=== PATIENT | male | born 1970 | race Two or more races ===

== ENCOUNTER 2024-12-01 11:49 | Inpatient (IN) | payer BC, OTHER, SELFPAY ==
[2024-12-01] VITALS (68 sets, daily range): BP systolic 104–164; BP diastolic 53–74; PULSE 22–44; RESP 2–96; TEMP 36.9–37.2; O2SAT 84–99; BMI 30.5
--- NOTE | 2024-12-01 12:08 | XR_ITS ---
Examination: CT abdomen and pelvis without contrast. Coronal 3-D reconstructions. Sagittal 2-D reconstructions. Date and time of exam:December 01, 2024 1257 hours COMPARISON: February 01, 2020 INDICATIONS: Left lower abdomen pain and diarrhea beginning 2 weeks ago CTDI: vol (mGy): 10.2 DLP: (mGycm): 645 Technique: Axial images of the abdomen have been obtained, 3 mm slice thickness Intravenous contrast material has not been administered. Low dose protocols were performed. One or more of the following dose reduction techniques were used; automated exposure control, adjustment of the mA and/or KV according to patient size, use of iterative reconstruction technique. Findings: Atelectasis in the right lower lobe Mild right pleural fluid Mild fluid subcapsular to the liver, most prominent anterior to liver 14 mm Gallbladder wall appears thickened, tiny gallstones Spleen is not enlarged No pancreatic mass No renal or ureteral calculi, no hydronephrosis Normal appendix Mild free fluid in the abdomen Urinary bladder intact Prominent osteopenia IMPRESSION: Atelectasis right lower lobe Mild right pleural fluid Mild fluid subcapsular to the liver, clinical correlation advised Gallbladder wall appears thickened, recommend hepatobiliary sonography follow-up Mild free fluid in the abdomen, clinical correlation advised
--- NOTE | 2024-12-01 12:08 | EKG_ITS ---
[facility] Test Date: 2024-12-01 Pat Name: MERVAT KAPOOR Department: Room: - Gender: Male Account Liaison: : 1970 Requested By: Gerardo Carrera Order Number: [id number] Reading MD: Gerardo Carrera Measurements Intervals [place] Rate: 34 P: AL: QRS: -12 QRSD: 132 T: -18 QT: 489 QTc: 370 Interpretive Statements IDIOVENTRICULAR RHYTHM CRITICAL TEST RESULT Compared to ECG 12/20/2020 12:31:06 Idioventricular rhythm now present Sinus rhythm no longer present Left bundle-branch block no longer present /store/S0/[id number].pdf
--- NOTE | 2024-12-01 12:09 | PD.EDABDPN ---
ED Abdominal Pain RME/HPI General Chief Complaint: Abdominal Pain Stated complaint: ABD PAIN, DIARRHEA X 2 WKS Time seen by provider: 12/01/24 12:03 Arrival date/time: 12/01/24 11:49 54-year-old male with no known medical history presents to the emergency room with a chief complaint of left lower quadrant abdominal pain and diarrhea x 2 weeks. Patient was seen by his primary care provider this morning and was sent to the emergency room due to bradycardia. Source: patient Mode of arrival: ambulatory Limitations: no limitations Related Data Home Medications ?Medication ?Instructions ?Recorded ?Confirmed amlodipine 10 mg tablet 10 mg PO QDAY 12/20/20 02/03/24 atorvastatin 10 mg tablet 10 mg PO QPM 12/20/20 02/03/24 garlic 5,000 mcg tablet 5 mg PO QDAY 11/14/22 02/03/24 hydrochlorothiazide 12.5 mg tablet 12.5 mg PO QAM 11/14/22 02/03/24 lisinopril 20 mg tablet 20 mg PO QDAY 11/14/22 02/03/24 metformin 500 mg tablet 500 mg PO QDAY 11/14/22 02/03/24 omeprazole 20 mg capsule,delayed 20 mg PO QDAY 11/14/22 02/03/24 release vit A palm and D3 in cod liver oil 1 cap PO QDAY 11/14/22 02/03/24 1,250 unit-130 unit-530 mg capsule (Cod Liver Oil plus Vits A and D3) allopurinol 100 mg tablet 100 mg PO QDAY 02/03/24 02/03/24 Previous Rx's ?Medication ?Instructions ?Recorded tamsulosin 0.4 mg capsule 0.4 mg PO QDAY #30 caps 01/30/20 docusate sodium 100 mg capsule 100 mg PO BID #40 caps 09/06/20 (Colace) Allergies Allergy/AdvReac Type Severity Reaction Status Date / Time acai Allergy Swelling Verified 12/01/24 11:54 of Lip/Tongue/Throat polyester fibers Allergy Rash Verified 12/01/24 11:54 kiwi AdvReac Swelling Verified 12/01/24 11:54 of Lip/Tongue/Throat turkey AdvReac Swelling Verified 12/01/24 11:54 of Lip/Tongue/Throat Review of Systems Review of Systems Systems Reviewed: All systems reviewed, normal except as documented Constitutional Constitutional: Reports system reviewed and no additional complaints, except as documented, Denies fatigue, Denies fever(s), Denies headache(s) and Denies weakness Eyes Eyes: Reports system reviewed and no additional complaints, except as documented, Denies blurry vision and Denies change in vision ENT Ears, Nose, Mouth, and Throat: Reports system reviewed and no additional complaints, except as documented, Denies otalgia, Denies headache(s), Denies nasal congestion, Denies throat swelling and Denies vertigo Cardiovascular Cardiovascular: Reports system reviewed and no additional complaints, except as documented, Denies chest pain, Denies dyspnea and Denies dyspnea on exertion Respiratory Respiratory: Reports system reviewed and no additional complaints, except as documented, Denies chest congestion, Denies cough, Denies dyspnea, Denies dyspnea on exertion and Denies wheezing Gastrointestinal Gastrointestinal: Reports system reviewed and no additional complaints, except as documented, Reports abdominal pain, Denies cramping, Reports loose stools, Denies nausea and Denies vomiting Genitourinary Genitourinary: Reports system reviewed and no additional complaints, except as documented, Denies dysuria and Denies hematuria Musculoskeletal Musculoskeletal: Reports system reviewed and no additional complaints, except as documented and Denies back pain Integumentary/Breasts Skin/Breast: Reports system reviewed and no additional complaints, except as documented and Denies wounds Neurologic Neurologic: Reports system reviewed and no additional complaints, except as documented, Denies confusion, Denies headache(s), Denies lack of coordination, Denies vertigo and Denies weakness Psychiatric Psychiatric: Reports system reviewed and no additional complaints, except as documented, Denies anxiety, Denies confusion, Denies depression, Denies paranoia, Denies suicidal ideation and Denies tactile hallucinations Endocrine Endocrine: Reports system reviewed and no additional complaints, except as documented and Denies fatigue Hematologic/Lymphatic Hematologic/Lymphatic: Reports system reviewed and no additional complaints, except as documented and Denies lymphadenopathy Allergic/Immunologic Allergic/Immunologic: Reports system reviewed and no additional complaints, except as documented, Denies throat swelling, Denies urticaria and Denies wheezing ED Exam General Limitations: Present no limitations General appearance: Present alert and in no apparent distress Head Head exam: Present atraumatic Eye Eye exam: Present normal appearance, PERRL and EOMI ENT ENT exam: Present normal exam, normal oropharynx and mucous membranes moist Neck Neck exam: Present normal inspection, full ROM and trachea midline Chest Chest inspection: Present normal inspection and symmetric chest wall rise Respiratory Respiratory exam: Present normal lung sounds bilaterally; Absent respiratory distress, wheezes, stridor, accessory muscle use or prolonged expiratory phase Cardiovascular Cardiovascular exam: Present regular rate, normal rhythm, bradycardia, irregular rhythm, normal heart sounds, +S1 and +S2; Absent tachycardia, systolic murmur, diastolic murmur, rubs, gallop, clicks, JVD, +S3 or +S4 Abdominal Exam Abdominal exam: Present soft, tenderness, normal bowel sounds and pulsatile mass Abdominal tenderness: Present LLQ and mild Extremities Exam Extremities exam: Present normal inspection and full ROM Back Exam Back exam: Present normal inspection and full ROM Neurological Exam Neurological exam: Present alert, oriented X3 and CN II-XII intact Psychiatric Psychiatric exam: Present normal affect and normal mood Skin Skin exam: Present warm, dry, intact and normal color Course Quality Measures none Orders Category Date Time Status COVID-19 Screening Questionnaire NOW Care 12/01/24 14:16 Active Decision to Admit X1 Care 12/01/24 14:15 Active EKG (ED ONLY) *Do not use* NOW Care 12/01/24 12:08 Completed Consult to Cardiology Stat Cons 12/01/24 14:19 Ordered CA echo doppler complete Stat Exams 12/01/24 14:[address] abdomen pelvis wo con Stat Exams 12/01/24 12:08 Completed EKG (ED Only) Stat Exams 12/01/24 12:08 Draft B-Type Natriuretic Peptide Stat Lab 12/01/24 13:20 Completed CBC Stat Lab 12/01/24 13:20 Completed CMP [Comprehensive Metabolic Panel] Stat Lab 12/01/24 13:20 Completed Free T4 (Free Thyroxine) Stat Lab 12/01/24 13:20 Completed Lipase Stat Lab 12/01/24 13:20 Completed Magnesium Stat Lab 12/01/24 13:20 Completed Partial Thromboplastin Time Stat Lab 12/01/24 13:20 Completed Phosphorous Stat Lab 12/01/24 13:20 Completed Prothrombin Time with INR Stat Lab 12/01/24 13:20 Completed TSH [Thyroid Stimulating Hormone] Stat Lab 12/01/24 13:20 Completed Troponin I Stat Lab 12/01/24 13:20 Completed Type and Screen Stat Lab 12/01/24 13:20 Results UA [Urinalysis] Stat Lab 12/01/24 12:08 Ordered Urine Culture Stat Lab 12/01/24 12:08 Ordered Atropine Inj SYR Med 12/01/24 12:44 Discontinued 1 mg IV X1 ONE Sodium Chloride 0.9% 1000 ml [Ns] 1,000 ml Med 12/01/24 14:10 Active IV 999 mls/hr Sodium Chloride 0.9% 1000 ml [Ns] 1,000 ml Med 12/01/24 14:10 Discontinued IV 999 mls/hr Vital Signs Vital signs: Vital Signs Temperature 98.9 F 12/01/24 12:01 Pulse Rate 44 L 12/01/24 12:01 Respiratory Rate 18 12/01/24 12:01 Blood Pressure 152/62 H 12/01/24 12:01 Pulse Oximetry (%) 97 12/01/24 12:01 Oxygen Delivery Method Room Air 12/01/24 12:01 O2 saturation 97% within normal limits PROCEDURES: EKG Interpretation #1: Date of EK12/01/24 Rate: 33 Interpretation: Reviewed by me EKG Impression: Sinus arrhythmia Additional EKG comment: The EKG shows sinus bradycardia at 33 bpm. There is a 3rd degree block. The assistant auditor Dr. Nam was consulted Abdominal Pain MDM MDM Narrative MDM Narrative:: 54-year-old male with no known medical history presents to the emergency room with a chief complaint of left lower quadrant abdominal pain and diarrhea x 2 weeks. Patient was seen by his primary care provider this morning and was sent to the emergency room due to bradycardia. Patient is bradycardic at 33 bpm. He is asymptomatic and denies any chest pain palpitations weakness fatigue shakiness clamminess or any other complaints. EKG was completed and shows sinus bradycardia at 33 bpm. There is 3rd degree block. The assistant auditor Dr. Nam was consulted. CBC CMP were completed and the patient's sodium levels were low and the patient was in acute kidney injury. Dr. Nam was updated with a CBC and CMP results and his recommendations were to do a stat echocardiogram. The patient was then admitted to the hospitalist group Dr. Boo who will admit the patient. Patient data External records reviewed:: [facility] previous records Clinical information provided by:: patient Social determinants that could affect healthcare access:: none Patient has the following chronic illnesses:: Type 2 diabetes, hypertension How is presenting disease/condition affected by chronic disease/condition?: no chronic disease Evaluation data The following diagnostics were reviewed and interpreted by me:: lab results and radiology exam(s) Lab and/or radiology exams considered but not ordered:: Labs and radiology exams considered and ordered Interpretation Summary: CT abdomen and pelvis-Findings: Atelectasis in the right lower lobe Mild right pleural fluid Mild fluid subcapsular to the liver, most prominent anterior to liver 14 mm Gallbladder wall appears thickened, tiny gallstones Spleen is not enlarged No pancreatic mass No renal or ureteral calculi, no hydronephrosis Normal appendix Mild free fluid in the abdomen Urinary bladder intact Prominent osteopenia IMPRESSION: Atelectasis right lower lobe Mild right pleural fluid Mild fluid subcapsular to the liver, clinical correlation advised Gallbladder wall appears thickened, recommend hepatobiliary sonography follow-up Mild free fluid in the abdomen, clinical correlation advised Medications / Prescriptions Medications or Prescriptions considered but not ordered:: No medication given Medication administrations:: Medication Administration History Sodium Chloride (Ns) 1,000 mls @ 999 mls/hr IV .Q1H1M ONE Stop: 12/01/24 15:10 Last Admin: 12/01/24 14:16 Dose: 999 mls/hr Documented By: STEPHEN Discontinued Medications Atropine Sulfate (Atropine Sulf Inj 0.1 Mg/Ml Syr 10 Ml) 1 mg IV X1 ONE Stop: 12/01/24 12:45 Last Admin: 12/01/24 13:28 Dose: 1 mg Documented By: STEPHEN Sodium Chloride (Ns) 1,000 mls @ 999 mls/hr IV .Q1H1M ONE Stop: 12/01/24 15:10 Last Admin: 12/01/24 14:16 Dose: Not Given Documented By: STEPHEN Non-Admin Reason: Duplicate Medication on eMAR No medication given Consultations Consultation(s) initiated? (list below): Yes Consultation #1 (Physician, Specialty, Details): Dr Nam Time: 14:00 Diagnosis Differential diagnosis abdominal pain: abdominal pain, diverticulitis and other (Sinus bradycardia/acute kidney injury) Most likely diagnosis given after review of the tests above:: Sinus bradycardia/acute kidney injury Admission Indicated Admission indicated?: indicated Admission Request Was there a request for admission?: Yes Admission Attestation Admission request attestation: Discussed case with [] from Hospitalist service regarding admission. Discussed patients ED course, exam findings, labs, and radiology results. The Hospitalist [agrees,declines] to accept the patient for admission. Disposition Plan Disposition Plan: Admit Discharge Plan Plan Patient Disposition: Admit Acute Care w/in Hospital Discharge Disposition comment: Stable Prescriptions/Referrals Prescriptions/Med Rec: No Action lisinopril 20 mg tablet 20 mg PO QDAY omeprazole 20 mg capsule,delayed release(DR/EC) 20 mg PO QDAY metformin 500 mg tablet 500 mg PO QDAY hydrochlorothiazide 12.5 mg tablet 12.5 mg PO QAM garlic 5,000 mcg tablet 5 mg PO QDAY Cod Liver Oil plus Immanuel and D3 1,250 unit-130 unit-530 mg capsule 1 cap PO QDAY allopurinol 100 mg tablet 100 mg PO QDAY tamsulosin 0.4 mg Capsule 0.4 mg PO QDAY Qty: 30 0RF docusate sodium [Colace] 100 mg capsule 100 mg PO BID Qty: 40 0RF atorvastatin 10 mg Tablet 10 mg PO QPM amlodipine 10 mg Tablet 10 mg PO QDAY Referrals: Sherry Parra MD [Primary Care Provider] - In 1 week Problem List Clinical Impression: Bradycardia, Acute kidney injury Patient/Caregiver Discharge Instructions Print Language: Syrian Stand Alone Forms: Sade Award Info., Patient Portal Info Letter PA/CONSULTING SOLUTION MANAGER Supervising Physician PA/CONSULTING SOLUTION MANAGER Supervising Physician: Dr. Servando FAN Attestation MD Attestation The patient was seen by the midlevel practitioner. I, the co-signing physician, was present during the entire ER visit. While I did not physically examine the patient, I was available for consultation as needed. I agree with the plan and documentation.
[2024-12-01] MEDS: ATROPINE SULF INJ 0.1 MG/ML SYR 10 ML 1 MG IV (13:28)
[2024-12-01 13:36] LABS: Basophils # (Auto) 0.0 Thou/mm3 (0.0-0.2); Basophils % (Auto) 0 % (0-2.5); Eosinophils # (Auto) 0.1 Thou/mm3 (0.0-0.5); Eosinophils % (Auto) 1 % (0-10); Hematocrit 34.6 % (41.0-53.0); Hemoglobin 11.7 g/dL (13.5-16.0); Immature Granulocytes Auto 0.07 Thou/mm3 (0.00-0.00); Lymphocytes # (Auto) 1.2 Thou/mm3 (1.0-4.8); Lymphocytes % (Auto) 9 % (10-50); Mean Corpuscular HGB Conc 33.8 g/dl (31.0-37.0); Mean Corpuscular Hemoglobin 30.9 pg (25.0-35.0); Mean Corpuscular Volume 91 fL (80-100); Monocytes # (Auto) 0.8 Thou/mm3 (0.0-0.8); Monocytes % (Auto) 7 % (0-12); Neutrophils # (Auto) 10.8 Thou/mm3 (1.8-7.7); Neutrophils % (Auto) 83 % (37-80); Nucleated Red Blood Cell # 0.00 Thou/mm3 (0.00-0.00); Nucleated Red Blood Cell % 0 /100 WBC (0); Platelet Count 272 Thou/mm3 (140-440); RDW Standard Deviation 46.1 fL (35.1-43.9); Red Blood Count 3.79 Miln/mm3 (4.50-5.90); White Blood Count 13.0 Thou/mm3 (3.8-10.6)
--- NOTE | 2024-12-01 13:39 | PC.NURSE ---
Patient has asymptomatic bradycardia with herat rate 33. Patient given 1mg Atropine with no improvement on heart rate. Patient placed on Zoll monitor pads.
[2024-12-01 13:46] LABS: INR 1.0 (0.9-1.3); Partial Thromboplastin Time 27.2 Seconds (22.0-36.0); Prothrombin Time 11.1 Seconds (9.0-12.2)
[2024-12-01 13:48] LABS: B-Type Natriuretic Peptide 619 pg/mL (0-100)
[2024-12-01 13:50] LABS: Alanine Aminotransferase 44 U/L (10-49); Albumin, Serum 4.6 gm/dL (3.5-5.0); Albumin/Globulin Ratio 2.0 (1.2-2.2); Alkaline Phosphatase 89 U/L (46-116); Anion Gap 11 (7-16); Aspartate Amino Transferase 11 U/L (0-34); BUN/Creatinine Ratio 21 Ratio (12-20); Bilirubin,Total 0.7 mg/dL (0.3-1.2); Blood Urea Nitrogen 33 mg/dL (9-23); Calcium 9.5 mg/dL (8.3-10.6); Calcium (Corrected) 9.5 mg/dL (8.5-10.1); Carbon Dioxide 21.7 mMol/L (20.0-31.0); Chloride 96 mMol/L (98-107); Creatinine (Component) 1.6 mg/dL (0.6-1.3); Estimated Creatinine Clearance 60.7 mL/min (>60); Globulin 2.3 gm/dL (2.3-3.5); Glucose 169 mg/dL (74-106); Lipase 103 U/L (12-53); Osmolality,Calculated 270 (275-295); Potassium 5.0 mMol/L (3.4-5.1); Sodium 129 mMol/L (136-145); Total Protein 6.9 gm/dL (5.7-8.2); Troponin I < 0.020 ng/mL (0.0-0.045); eGFR 50 See Note
[2024-12-01 13:53] LABS: Free T4 (Free Thyroxine) 1.57 ng/dL (0.89-1.76); Magnesium 1.8 mg/dL (1.6-2.6); Phosphorous 4.0 mg/dL (2.4-5.1); Thyroid Stimulating Hormone 1.78 uIU/mL (0.55-4.78)
[2024-12-01] MEDS: SODIUM CHLORIDE 0.9% 1000 ML 1,000 ML 999 ML IV (14:16)
--- NOTE | 2024-12-01 14:19 | ECHO_ITS ---
Transthoracic Echo Report Ht (in): 70 Wt (lb): 217 Exam Location: Echo Lab Status: Inpatient Assurance Sourcing Manager: Ella Broderick Indications: Procedure Performed: BP: / HR: MEASUREMENTS (Male / Female) Normal Values 2D ECHO LV Diastolic Diameter PLAX 5.3 cm 4.2 - 5.9 / 3.9 - 5.3 cm LV Systolic Diameter PLAX 3.4 cm IVS Diastolic Thickness 0.9 cm 0.6 - 1.0 / 0.6 - 0.9 cm LVPW Diastolic Thickness 1.0 cm 0.6 - 1.0 / 0.6 - 0.9 cm LV Relative Wall Thickness 0.4 LVOT Diameter 1.7 cm Aortic Root Diameter 3.1 cm LA Systolic Diameter LX 3.7 cm 3.0 - 4.0 / 2.7 - 3.8 cm LV Ejection Fraction MOD BP 41.4 % >= 55 % LV Ejection Fraction MOD 4C 35.1 % LV Ejection Fraction 4C AL 34.5 % LV Ejection Fraction MOD 2C 45.3 % LV Ejection Fraction 2C AL 46.4 % LA Volume Index 24.9 cm?/m? 16 - 28 cm?/m? M-MODE Aortic Root Diameter MM 2.6 cm LA Systolic Diameter MM 3.8 cm LA Ao Ratio MM 1.5 AV Cusp Separation MM 1.9 cm DOPPLER AV Peak Velocity 291.0 cm/s AV Peak Gradient 33.9 mmHg AV Mean Gradient 19.0 mmHg AV Velocity Time Integral 68.5 cm LVOT Peak Velocity 193.0 cm/s LVOT Peak Gradient 14.9 mmHg LVOT Velocity Time Integral 40.5 cm AV Area Cont Eq vti 1.3 cm? AV Area Cont Eq pk 1.5 cm? MV Area PHT 5.8 cm? MR Peak Velocity 419.5 cm/s MR Peak Gradient 70.4 mmHg Mitral E Point Velocity 105.0 cm/s Mitral A Point Velocity 102.0 cm/s Mitral E to A Ratio 1.0 LV E' Lateral Velocity 10.7 cm/s Mitral E to LV E' Lateral Ratio 9.8 LV E' Septal Velocity 8.2 cm/s Mitral E to LV E' Septal Ratio 12.9 TR Peak Velocity 286.3 cm/s TR Peak Gradient 32.8 mmHg PV Peak Velocity 171.0 cm/s PV Peak Gradient 11.7 mmHg FINDINGS Left Ventricle Normal left ventricular size, wall thickness, systolic function with no obvious regional wall motion abnormalities.Indeterminate diastolic due to A-fib. The ejection fraction is visually estimated at 50-55%. Right Ventricle The right ventricle is normal in size and systolic function. The estimated right ventricular systolic pressure, 48 mmHg. Left Atrium The left atrium is normal by two-dimensional, color flow and Doppler imaging with no structural abnormalities, no thrombus formation present. Right Atrium The right atrium is normal by two-dimensional imaging, color flow and Doppler imaging with no structural abnormalities, no thrombus formation present. Atrial Septum The interatrial septum appears normal with no evidence of a shunt. Aorta The aorta is normal by two-dimensional, color flow and Doppler interrogation. Mitral Valve The mitral valve is normal by two-dimensional, color flow and Doppler interrogation. Mild mitral regurgitation. Aortic Valve Mild thickening of the aortic valve leaflets. There is no significant aortic valve regurgitation. Tricuspid Valve The tricuspid valve is normal by two-dimensional, color flow and Doppler interrogation. There is mild tricuspid valve regurgitation. Pulmonic Valve The pulmonic valve is not well visualized. There is no significant pulmonic valve regurgitation. Vessels The pulmonary artery appears normal. The inferior vena cava not well visualized Pericardium The pericardium is normal by two-dimensional imaging. There is no significant pericardial effusion. CONCLUSIONS Indication: Bradycardia Normal LV size and wall thickness. LV function appears to be hyperkinetic with an EF of around 65 to 70%. Diastolic function cannot be graded because of the arrhythmia with complete heart block. Normal RV size and function. RVSP could not be estimated accurately. Mild MR and TR. Aortic valve not well-visualized and cannot comment on tricuspid vs bicuspid. Moderate aortic valve sclerosis without stenosis. IVC not well-visualized. No clear evidence of any pericardial effusion Elevated LVOT velocities mostly secondary to the hyperkinetic contraction of LV in the setting of severe bradycardia Rodney Nam (Electronically Signed) Final Date: 02 December 2024 01:07
--- NOTE | 2024-12-01 15:25 | PD.RESCONSUL ---
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 Patient denied dizziness or syncopal episodes, but did endorse feeling of generalized weakness when he tries to stand and walk. The patient reported that he thinks he got food poisoning for the past 2 weeks, reported abdominal pain and diarrhea for the past couple of weeks. Denied nausea or vomiting. Of note, patient's home medication record shows metoprolol succinate, the patient is not aware of his home medications, but did report taking all his medications this morning. The patient also reported that he saw a delivery recruiter 4 years ago for cardiac clearance prior to his surgery for inguinal hernia and left testicular tumor, at that time he had a stress test and was told everything was normal. Initial vitals, BP 148/58, pulse 33/min, respiratory rate 14/min, O2 sat 95 percent on room air, EKG showed third-degree AV block, initial labs showed hyponatremia and acute kidney injury. CT abdomen pelvis showed atelectasis right lower lobe, mild right pleural fluid, mild fluid subcapsular to the liver, thickened gallbladder wall, mild free fluid in abdomen, Patient was given 1 L NS bolus, blood pressure continues to be stable, initial labs showed WBC 13, hemoglobin 11.7 platelet 272, hyponatremia sodium 129, potassium 5.0, BUN 33 creatinine 1.6, glucose 169, osmolality 270, BNP 619, lipase 103. Home medications: Metoprolol succinate 25 mg daily, tamsulosin 0.4 mg daily, amlodipine 10 mg daily, atorvastatin 10 mg daily, allopurinol 100 mg daily, metformin 500 mg, lisinopril 20 mg, hydrochlorothiazide 12.5 mg. 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 RESOLVED. CLEAR BY CONFERENCE COORDINATOR), Hypercholesterolemia and Hypertension; Negative Congestive Heart Failure, Edema, Cellulitis or Varicose Veins RESPIRATORY: Negative Chronic Obstructive Pulmonary Disease (COPD), Asthma, Tuberculosis or Sleep Apnea GASTROINTESTINAL: Positive Gastrointestinal Disorders and Gastroesophageal Reflux Disease; Negative Hepatitis GENITOURINARY: Positive Inguinal Hernia (repairedin August 2020) and Benign Prostatic Hyperplasia; Negative Genitourinary Disorders or Renal Disease MUSCULOSKELETAL: Positive Musculoskeletal Disorders, Arthritis, Gout, Degenerative Joint Disease (PINCHED NERVE) and Osteomyelitis ENT: Positive Head Trauma (AT AGE 5) ENDOCRINE: Positive Endocrine Disorders and Diabetes Mellitus Type 2 (NO MEDS); Negative Diabetes Mellitus Type 1 HEMATOLOGIC: Negative Blood Disorders, Sickle Cell Disease or Clotting Problems OTHER HISTORY: Positive Hospitalization and Chicken Pox; Negative Autoimmune Disease, Shingles, Falls, Blood Transfusions, Blood Transfusion Reaction, Anesthesia Reactions, Organ Transplant, Chemotherapy, Radiation Therapy, MRSA, Measles, Mumps or Cancer Family History FAMILY HISTORY: Positive Family Respiratory Disorders (MOTHER- ASTHMA), Family Cardiac Disorders (BROTHER - HEART SURGERY) and Family Surgery; Negative Family Neurologic Problems, Family Psychiatric Problems, Family Gastrointestinal Problems, Family Cancer or Family Anesthesia Reaction Surgical History SURGICAL: Positive Abdominal Surgery; Negative Cardiac Surgery, Pacemaker, Endocrine Surgery, Ear Surgery, Eye Surgery, Nose Surgery, Oral Surgery, Neurologic Surgery, Vasectomy or Organ Transplant Social History SMOKING STATUS: Never smoker SECOND HAND EXPOSURE: No SUBSTANCE USE: does not use Exam Vital Signs Temp Pulse Resp BP Pulse Ox O2 Del Method 98.9 F 33 L 14 148/58 H 93 L Room Air 12/01/24 13:33 12/01/24 13:33 12/01/24 13:33 12/01/24 13:33 12/01/24 13:33 12/01/24 13:33 Narrative Exam General: AOx3, cooperative Skin: Intact, no cyanosis , trace pedal edema noted. Noted multiple keloids on the anterior chest. HEENT: Atraumatic/normocephalic, [place], neck supple Heart: RRR, S1 and S2 without clicks or murmurs Lungs: Clear on auscultation bilaterally, no difficulty breathing Abdomen: Soft, nontender. Bowel sounds present . Vascular: Peripheral pulses palpable Neuro: No focal neurological deficits noted. Results Labs 12/01/24 13:20 12/01/24 13:20 Labs: Short CBC 12/01/24 Range/Units 13:20 WBC 13.0 H (3.8-10.6) Thou/mm3 Hgb 11.7 L (13.5-16.0) g/dL Hct 34.6 L (41.0-53.0) % Plt Count 272 (140-440) Thou/mm3 BMP 12/01/24 13:20 Sodium 129 L Potassium 5.0 Chloride 96 L Carbon Dioxide 21.7 BUN 33 H Creatinine 1.6 H Glucose 169 H Calcium 9.5 Cardiac Enzymes 12/01/24 Range/Units 13:20 Troponin I < 0.020 (0.0-0.045) ng/mL Liver Function 12/01/24 Range/Units 13:20 Total Bilirubin 0.7 (0.3-1.2) mg/dL AST 11 (0-34) U/L ALT 44 (10-49) U/L Alkaline Phosphatase 89 (46-116) U/L Albumin 4.6 (3.5-5.0) gm/dL Quality Measures Quality Measures none Medications Home Medications and Allergies Home Medications ?Medication ?Instructions ?Recorded ?Confirmed ?Type amlodipine 10 mg tablet 10 mg PO QDAY 12/20/20 12/01/24 History atorvastatin 10 mg tablet 10 mg PO QPM 12/20/20 12/01/24 History garlic 5,000 mcg tablet 5 mg PO QDAY 11/14/22 12/01/24 History hydrochlorothiazide 12.5 mg tablet 12.5 mg PO QAM 11/14/22 12/01/24 History lisinopril 20 mg tablet 20 mg PO QDAY 11/14/22 12/01/24 History metformin 500 mg tablet 500 mg PO QDAY 11/14/22 12/01/24 History omeprazole 20 mg capsule,delayed 20 mg PO QDAY 11/14/22 12/01/24 History release vit A palm and D3 in cod liver oil 1 cap PO QDAY 11/14/22 12/01/24 History 1,250 unit-130 unit-530 mg capsule (Cod Liver Oil plus Vits A and D3) allopurinol 100 mg tablet 100 mg PO QDAY 02/03/24 12/01/24 History Allergies Allergy/AdvReac Type Severity Reaction Status Date / Time acai Allergy Swelling Verified 12/01/24 11:54 of Lip/Tongue/Throat polyester fibers Allergy Rash Verified 12/01/24 11:54 kiwi AdvReac Swelling Verified 12/01/24 11:54 of Lip/Tongue/Throat turkey AdvReac Swelling Verified 12/01/24 11:54 of Lip/Tongue/Throat Visit Medications Discontinued Medications Atropine Sulfate (Atropine Sulf Inj 0.1 Mg/Ml Syr 10 Ml) 1 mg IV X1 ONE Stop: 12/01/24 12:45 Last Admin: 12/01/24 13:28 Dose: 1 mg Sodium Chloride (Ns) 1,000 mls @ 999 mls/hr IV .Q1H1M ONE Stop: 12/01/24 15:10 Last Admin: 12/01/24 14:16 Dose: 999 mls/hr Sodium Chloride (Ns) 1,000 mls @ 999 mls/hr IV .Q1H1M ONE Stop: 12/01/24 15:10 Last Admin: 12/01/24 14:16 Dose: Not Given Assessment & Plan Plan The patient is a 54-year-old male with a prior history of hypertension, hyperlipidemia, gout, diabetes mellitus type 2, history of BPH, history of inguinal hernia, 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 Patient denied dizziness or syncopal episodes, but did endorse feeling of generalized weakness when he tries to stand and walk. The patient reported that he thinks he got food poisoning for the past 2 weeks, reported abdominal pain and diarrhea for the past couple of weeks. Denied nausea or vomiting. Of note, the patient also reported that he saw a delivery recruiter 4 years ago for cardiac clearance prior to his surgery for inguinal hernia and left testicular tumor, at that time he had a stress test and was told everything was normal. Problems: 1. Bradycardia, third-degree AV block 2. Acute kidney injury - rule out cardiorenal vs pre renal 3. Hyponatremia 4. Mild Pleural effusion 5. History of hypertension 6. History of diabetes mellitus 7. History of left testicular tumor s/p radical orchidectomy 8. History of anemia Noted third-degree AV block on EKG, patient is asymptomatic at the moment, did complain generalized weakness but patient reports having the symptoms for the past couple of weeks since onset of diarrhea. Denied syncope or dizziness, vitals stable. Was given 1 L IV fluid bolus, 1 mg IV atropine and pacer pads were placed. At the time of evaluation patient continues to deny any symptoms of chest pain or pressure, or dizziness. Heart rate 32/min blood pressure systolic in the 140s. Recommend to give IV fluids for KELLY, recommend to keep pacing pads on at all times, keep atropine at bedside, if patient develops symptomatic bradycardia, ordered stat echocardiogram. Hypoosmolar hyponatremia likely secondary to hypovolemia, in the setting of diarrhea and prerenal KELLY. Acute kidney injury likely prerenal in the setting of diarrhea, CT did show mild free fluid in abdomen and mild right pleural effusion but patient does not seem to be clinically in decompensated heart failure, received IV fluid bolus in ED, will discontinue IV fluids as patient has pleural effusion and mild ascites. CT abdomen pelvis also reported mild right pleural effusion and mild free fluid in abdomen, slight lipase elevation, no clinical concern of pancreatitis at this point, will defer to primary team. Pleural effusion and mild ascites possibly due to decreased cardiac output in the setting of bradycardia. Did notice hypertension patient's blood pressure 173 systolic, would recommend holding off on blood pressure medications as patient is high risk for developing cardiogenic shock, if blood pressure continues to be elevated can consider hydralazine as needed. ? Per ACLS bradycardia algorithm, recommend to keep atropine at bedside, if patient develops symptomatic bradycardia, can give atropine and Consider dopamine drip if patient hypotensive, as part of ACLS bradycardia protocol. ? Ordered stat echocardiogram. ? Tentative plan for permanent pacemaker placement tomorrow, patient to be made n.p.o. after midnight. - Recommend to not give any aspirin or heparin subcu tomorrow morning. Rest of the management deferred to primary team. Thank you for cardiology consultation. We appreciate the opportunity to participate in this patient's care. Will continue to follow-up on this patient This case was discussed with delivery recruiter, Dr. Nam. Uday Orozco MD PG3 Attending Provider Attestation/Addendum I have personally seen and examined the patient separately on the above date of service and discussed the plan of care with the resident. I reviewed the resident Dr. Frye consultation progress note and agree with the resident findings and plan in the note above and have also edited the documentation to reflect my findings and plan. 54-year-old male with a past medical history of essential hypertension, type 2 diabetes mellitus, hyperlipidemia, left testicular tumor status post radical orchiectomy, BPH, gout, history of inguinal hernia repair, obesity presented to the emergency department for further evaluation of bradycardia. Patient apparently has been having dizziness and presyncopal episodes and about 2 positive sensation at home on and off for the past couple of weeks. He is started having some left lower quadrant abdominal pain along with diarrhea over the past 2 days and went to see his primary care doctor where he was found to have bradycardia and was sent to the emergency department. In the emergency department patient was found to have third-degree AV block or complete heart block and cardiology was consulted for further evaluation. Assessment and plan-: patient presented with complete A-V block for third-degree heart block confirmed on the EKG. No clear reversible causes noted at the present point of time. Patient has not been on beta-escobar or calcium channel escobar or other rate control medications. He does have mild KELLY and the potassium was only 5.0. Patient has been having symptomatic bradycardia given that he has been complaining of dizziness, overall tiredness or lethargic along with presyncopal episodes. Hemodynamically patient is stable with systolic blood pressure Than 150 mmHg and has a ventricular escape rate of 30 to 35 bpm. Patient was given atropine in the emergency department without much improvement in cardiology was consulted after that. Recommend no urgent temporary pacemaker placement as patient is hemodynamically stable at the present point of time. If patient's heart rate deteriorates and is hemodynamically unstable with low blood pressure patient can be started on low-dose dopamine drip overnight. Will keep the patient n.p.o. and will plan for permanent pacemaker as there is no clear reversible causes. TSH and free T4 are normal. Stat echocardiogram requested and will keep the patient n.p.o. past midnight and recommend no aspirin or heparin subcu tomorrow morning. Discussed risk benefits and alternatives of performing a permanent pacemaker for the patient including the risk of bleeding, infection as well as perforation with hemopericardium, possible along with keloid scar formation given his history of keloid scars. Patient understand the risks and wishes to proceed with procedure. Consent obtained for the same and will plan to do tomorrow afternoon. Blood pressure at 150-170 mmHg and recommend to keep the blood pressure on the same range. Hold all antihypertensive for now. No beta-blockers calcium channel blockers or Aricept or other rate control medications. Regarding his acute kidney injury BUN is 33 and creatinine is 1.6. Last creatinine is 1.0 in 2020 and unclear etiology of acute kidney injury. Overall examination shows that the PE BNP is increased at 691. Patient also does have mild pleural effusions and could be cardiorenal also. No IV fluids for now and will prefer diuresis but patient is not short of breath at the present point of time. Will reevaluate again in AM. Continue to monitor kidney function closely. Strict input output. Hypertension diabetes mellitus not well-controlled. Last A1c is 7.3. TSH FT4 normal. Troponin was negative recommend to check lipid profile Rodney Nam M.D. Interventional Cardiology
[2024-12-01 16:42] LABS: Collection Type, Urine Clean Catch; RBC,Urine 0 /hpf (0-3); Squamous Epithelial Cell,Urine 0 /hpf (0-5)
[2024-12-01 16:57] LABS: Bilirubin,Urine Negative (Negative); Blood,Urine Negative (Negative); Clarity,Urine Clear (Clear/Hazy); Color,Urine Lt-Yellow (Lt Yel-Yel); Glucose, Urine Negative (Negative); Ketones,Urine Negative (Negative); Leukocyte Esterase,Urine Negative (Negative); Nitrite,Urine Negative (Negative); PH,Urine 6.0 (5.0-7.0); Protein,Urine Negative (Neg - Trace); Specific Gravity,Urine 1.008 (1.001-1.035); Urobilinogen,Urine Negative mg/dL (0.0-1.0); WBC,Urine 1 /hpf (0-5)
--- NOTE | 2024-12-01 17:13 | ESHP_ITS ---
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 Patient endorsed that he was apparently normal until 5 days ago, later he ate some fast food following which he developed diarrheal illness, 1-3 episodes per day, watery not associated with any mucus and blood. Associated with left lower quadrant abdominal pain for which he is applying some topical creams and developed a bruise. Denies fever, nausea, vomitings, recent sick contacts. Took [id number] medications for the diarrhea but did not subside following which he went to the [facility] on the day of admission for some antibiotics but noted to have bradycardia on checking his vitals for which she was referred to our ED for further management. In the ED, patient was noted to have bradycardia with heart rate around 30 and patient is hemodynamically stable. EKG done in the ED showed complete A-V dissociation with third-degree AV block. Labs done at the time of admission showed mild KELLY with no electrolyte imbalances. Interlacer, Dr. Nam is consulted and he recommended that patient needs permanent pacemaker tomorrow but no need of any pacing as of now as the patient is hemodynamically stable. Patient is admitted into the ICU for monitoring in view of bradycardia. Interlacer recommended no antihypertensive as of now. Patient is noted to use metoprolol 25 mg once daily which was held as of now. Will undergo placement maker placement tomorrow. Will keep the patient on n.p.o. after the breakfast Patient plan of care was discussed with the Fabric Machine Operator, Dr. Servando Almodovar, PGY2 Documentation for date of: 12/01/24 HPI History of Present Illness History of present illness: A 54-year-old male with a history of hypertension, hyperlipidemia, gout, [id number] diabetes mellitus type 2, BPH, inguinal hernia repair, and a left radical orchidectomy sought care at a walk-in clinic for lower abdominal pain. There, he was found to have symptomatic bradycardia given that he has been complaining of dizziness, overall tiredness or lethargic along with presyncopal episodes and was sent to the emergency department. His current symptoms, which began on November 27, include left lower abdominal pain and loose stools three times a day, which he attributes to food poisoning, although no family members are ill. He denies nausea, vomiting, chest pain, or shortness of breath, but reports generalized weakness and shaking that make it difficult to walk, and dizziness only when it's hot outside. Upon arrival, an EKG confirmed a third- degree AV block with a heart rate of 33 bpm. No beta escobar or calcium channel escobar was used. 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 Four years ago, he underwent a left heart catheterization for cardiac clearance for his hernia and testicular tumor surgeries and was told his heart was normal. ED course: Initial vitals are notable for bradycardia with a pulse of 33/min and an EKG showing third-degree AV block. Atropine 1 mg IV x 1 was given. But no improvement in heart rate. His blood pressure is 148/58 and oxygen saturation is 95% on room air. Initial lab results show a leukocytosis with a WBC count of 13, a sodium level of 129, and a creatinine of 1.6. Imaging from a CT of the abdomen and pelvis shows atelectasis in the right lower lung, mild pleural fluid, a thickened gallbladder wall, and some free fluid in the abdomen. After receiving a 1L NS bolus, his blood pressure remained stable. Other lab results include a hemoglobin of 11.7, a potassium of 5.0, a BUN of 33, and a BNP of 619. Past medical history: as stated above Past surgical history: as stated above Medications: see med list Allergies: No known drug allergy Social history: Denies smoking and drinking Patient has been admitted to the ICU for very close monitoring and requiring placement of a permanent pacemaker. Review of Systems Review of Systems Narrative Review of Systems: All systems reviewed negative unless stated otherwise above. Exam Vital Signs Temp Pulse Resp BP Pulse Ox O2 Del Method 98.9 F 30 L 15 164/63 H 94 L Room Air 12/01/24 16:12/01/24 16:07 12/01/24 16:07 12/01/24 16:07 12/01/24 16:12/01/24 16:07 Narrative Exam General: AOx3, cooperative, in no acute distress HEENT: Atraumatic/normocephalic, LOUIS, neck supple. Heart: RRR, S1 and S2 without clicks or murmurs Lungs: Good bilateral air entry, no work of breathing, no added sounds Abdomen: Nondistended soft, mild tenderness in the left lower quadrant. Bowel sounds present Vascular: Peripheral pulses palpable Skin: Intact, no cyanosis , trace pedal edema noted. Noted multiple keloids on the anterior chest. Ecchymoses on left abdomen from adding cream for pain relief Neuro: No focal neurological deficits noted. GCS 15 Psych: Appropriate mood and affect Results: Labs 12/01/24 13:20 12/01/24 13:20 Labs: Short CBC 12/01/24 Range/Units 13:20 WBC 13.0 H (3.8-10.6) Thou/mm3 Hgb 11.7 L (13.5-16.0) g/dL Hct 34.6 L (41.0-53.0) % Plt Count 272 (140-440) Thou/mm3 BMP 12/01/24 13:20 Sodium 129 L Potassium 5.0 Chloride 96 L Carbon Dioxide 21.7 BUN 33 H Creatinine 1.6 H Glucose 169 H Calcium 9.5 Cardiac Enzymes 12/01/24 Range/Units 13:20 Troponin I < 0.020 (0.0-0.045) ng/mL Liver Function 12/01/24 Range/Units 13:20 Total Bilirubin 0.7 (0.3-1.2) mg/dL AST 11 (0-34) U/L ALT 44 (10-49) U/L Alkaline Phosphatase 89 (46-116) U/L Albumin 4.6 (3.5-5.0) gm/dL Urine 12/01/24 Range/Units 16:27 Urine Color Lt-Yellow (Lt Yel-Yel) Urine Clarity Clear (Clear/Hazy) Urine pH 6.0 (5.0-7.0) Ur Specific [place] 1.008 (1.001-1.035) Urine Protein Negative (Neg - Trace) Urine Glucose (UA) Negative (Negative) Quality Measures Quality Measures none Medications Home Medications and Allergies Home Medications ?Medication ?Instructions ?Recorded ?Confirmed ?Type amlodipine 10 mg tablet 10 mg PO QDAY 12/20/2012/01 History atorvastatin 10 mg tablet 10 mg PO QPM 12/20/20 History garlic 5,000 mcg tablet 5 mg PO QDAY 11/14/22 History hydrochlorothiazide 12.5 mg tablet 12.5 mg PO QAM 10/2112/01/24 History lisinopril 20 mg tablet 20 mg PO QDAY 11/14/2212/01 History metformin 500 mg tablet 500 mg PO QDAY 11/14/2211/20 History omeprazole 20 mg capsule,delayed 20 mg PO QDAY 3 12/01/24 History release vit A palm and D3 in cod liver oil 1 cap PO QDAY 11/1412/01/24 History 1,250 unit-130 unit-530 mg capsule (Cod Liver Oil plus Vits A and D3) allopurinol 100 mg tablet 100 mg PO QDAY 02/03/2411/20 History Allergies Allergy/AdvReac Type Severity Reaction Status Date / Time acai Allergy Swelling Verified 12/01/24 11:54 of Lip/Tongue/Throat polyester fibers Allergy Rash Verified 12/01/24 11:54 kiwi AdvReac Swelling Verified 12/01/24 11:54 of Lip/Tongue/Throat turkey AdvReac Swelling Verified 12/01/24 11:54 of Lip/Tongue/Throat Visit Medications Acetaminophen (Acetaminophen 325 Mg Tablet) 650 mg PO Q4HR PRN PRN Reason: PAIN SCALE 1-3 (mild Stop: 12/31/24 15:51 Acetaminophen (Acetaminophen Supp 650 Mg Supp) 650 mg OH Q4HR PRN PRN Reason: PAIN SCALE 1-3 (mild Stop: 12/31/24 15:51 Heparin Sodium (Porcine) (Heparin Sod Inj 5000 Unit/Ml Vial) 5,000 unit SC Q8HR LINDA Stop: 12/15/24 21:59 Sodium Chloride (Ns) 500 mls @ 80 mls/hr IV .Q6H15M LINDA Stop: 12/01/24 21:39 Magnesium Sulfate (Magnesium Sulfate Ivpb) 2 gm in 50 mls @ 25 mls/hr IV X1 ONE Stop: 12/01/24 17:46 Pantoprazole Sodium (Pantoprazole Inj 40 Mg Vial) 40 mg IVP QDAY LINDA Stop: 01/01/25 08:59 Discontinued Medications Atropine Sulfate (Atropine Sulf Inj 0.1 Mg/Ml Syr 10 Ml) 1 mg IV X1 ONE Stop: 12/01/24 12:45 Last Admin: 12/01/24 13:28 Dose: 1 mg Sodium Chloride (Ns) 1,000 mls @ 999 mls/hr IV .Q1H1M ONE Stop: 12/01/24 15:10 Last Infusion: 12/01/24 15:20 Dose: Infused Sodium Chloride (Ns) 1,000 mls @ 999 mls/hr IV .Q1H1M ONE Stop: 12/01/24 15:10 Last Admin: 12/01/24 14:16 Dose: Not Given Assessment & Plan Plan Summary: 54-year-old male with a history of hypertension, hyperlipidemia, gout, [id number] diabetes mellitus type 2, BPH, inguinal hernia repair, and a left radical orchidectomy sought care at a walk-in clinic for lower abdominal pain. There, he was found to have symptomatic bradycardia given that he has been complaining of dizziness, overall tiredness or lethargic along with presyncopal episodes and was sent to the emergency department for evaluation of bradycardia. [employer] INS[employer]: No acute active issues. CVS: #Bradycardia, third-degree heart block DDx: [place], CAD, cardiomyopathy, heart valve disease, beta-escobar use, CHF No clear reversible causes Troponin negative No use of BB Plan ? Transcutaneous pacing pads on at all times ?Cardiology consulted, Dr. Nam, appreciate recs ?Atropine at bedside ? May start low-dose dopamine drip overnight if HR worsens or patient becomes hemodynamically stable #Hx of essential hypertension Plan ? No active intervention at this time until bradycardia is resolved ? May consider hydralazine if blood pressure too high #Possible new diagnosis CHF Trace pitting edema bilaterally BNP 619 Chest x-ray shows vascular congestion Plan ? Stat echo ordered ? Strict I/Os PULM: No active issues. GI: #Mild Ascites CT abdo/pelvis showed mild free fluid in abdomen Possibly due to decreased cardiac output in the setting of bradycardia LFTs normal Plan - Consider paracentesis if ascites worsens RENAL: #KELLY Unclear etiology: Prerenal vs Intrarenal vs Postrenal May be cardiorenal Creatinine 1.6 Received 1.5 L so far Plan ? No fluids until reassessment in AM ? Consider diuretics if patient develops SOB ? Check labs in a.m. #Hyponatremia Likely secondary to diarrhea Received IV fluids today Plan ? Check lab in a.m. ENDO: #Type 2 diabetes, [id number] A1c 7.3 Not well controlled ? Blood glucose checks ?Insulin sliding scale ? Hypoglycemia protocol in place URO: #Hx of BPH Plan Restarted Tamsolosin 0.4mg daily #Hx of left testicular mass, S/P radical orchiectomy. Histology is benign. 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 Health Maintenance: Diet: Carb consistent diet for now, n.p.o. after breakfast for pacemaker placement GI prophylaxis: Protonix daily DVT prophylaxis: Heparin 5000 units every 8 hours Antibiotics: None indicated at this time CODE STATUS: Full Disposition: ICU for monitoring Case discussed with my attending Dr. Al, and senior resident, Dr. Scooby Schneider MD PGY-1
--- NOTE | 2024-12-01 17:49 | XR_ITS ---
Examination: AP chest single view TECHNIQUE: AP portable sitting chest single view Date and time: December 01, 2024 1755 hours INDICATIONS: Difficulty breathing today. FINDINGS: Mild enlargement cardiac contour Mild vascular congestion. No lobar pneumonia or pulmonary edema IMPRESSION: Mild vascular congestion.
[2024-12-01] MEDS: Magnesium Sulfate 2 GM Ivpb 2 GM/50 ML BAG IV (17:52)
[2024-12-01] MEDS: SODIUM CHLORIDE 0.9% 500 ML 500 ML 80 ML IV (17:52)
[2024-12-01 18:27] LABS: Glucose Estimated Average 163 mg/dL (80-131); Hemoglobin A1C 7.3 % Hgb (4.8-6.0)
[2024-12-01] MEDS: TAMSULOSIN HCL 0.4 MG CAPSULE PO (20:13)
[2024-12-01] MEDS: HEPARIN SOD INJ 5000 UNIT/ML VIAL SC (21:51)
[2024-12-02] VITALS (148 sets, daily range): BP systolic 110–170; BP diastolic 52–88; PULSE 0–93; RESP 5–98; TEMP 36.4–37.2; O2SAT 84–100; BMI 30.1
[2024-12-02] MEDS: ONDANSETRON INJ 2 MG/ML INJ 2 ML 4 MG IVP (03:36)
[2024-12-02 06:43] LABS: Cardiac Risk Estimate 3.0 RATIO (4.0-6.7); Cholesterol 70 mg/dL (132-200); HDL Cholesterol 23 mg/dL (40-60); LDL Cholesterol,Calculated 21 mg/dL (0-130); Magnesium 2.2 mg/dL (1.6-2.6); Phosphorous 4.1 mg/dL (2.4-5.1); Triglycerides 130 mg/dL (30-150)
[2024-12-02 07:02] LABS: Basophils # (Auto) 0.0 Thou/mm3 (0.0-0.2); Basophils % (Auto) 0 % (0-2.5); Eosinophils # (Auto) 0.2 Thou/mm3 (0.0-0.5); Eosinophils % (Auto) 1 % (0-10); Hematocrit 31.7 % (41.0-53.0); Hemoglobin 10.7 g/dL (13.5-16.0); Immature Granulocytes Auto 0.06 Thou/mm3 (0.00-0.00); Lymphocytes # (Auto) 1.4 Thou/mm3 (1.0-4.8); Lymphocytes % (Auto) 11 % (10-50); Mean Corpuscular HGB Conc 33.8 g/dl (31.0-37.0); Mean Corpuscular Hemoglobin 30.8 pg (25.0-35.0); Mean Corpuscular Volume 91 fL (80-100); Monocytes # (Auto) 1.1 Thou/mm3 (0.0-0.8); Monocytes % (Auto) 9 % (0-12); Neutrophils # (Auto) 10.1 Thou/mm3 (1.8-7.7); Neutrophils % (Auto) 78 % (37-80); Nucleated Red Blood Cell # 0.00 Thou/mm3 (0.00-0.00); Nucleated Red Blood Cell % 0 /100 WBC (0); Platelet Count 223 Thou/mm3 (140-440); RDW Standard Deviation 46.5 fL (35.1-43.9); Red Blood Count 3.47 Miln/mm3 (4.50-5.90); White Blood Count 12.9 Thou/mm3 (3.8-10.6)
[2024-12-02 07:33] LABS: Alanine Aminotransferase 33 U/L (10-49); Albumin, Serum 4.1 gm/dL (3.5-5.0); Albumin/Globulin Ratio 2.0 (1.2-2.2); Alkaline Phosphatase 78 U/L (46-116); Anion Gap 11 (7-16); Aspartate Amino Transferase < 10 U/L (0-34); BUN/Creatinine Ratio 21 Ratio (12-20); Bilirubin,Total 0.7 mg/dL (0.3-1.2); Blood Urea Nitrogen 32 mg/dL (9-23); Calcium 9.8 mg/dL (8.3-10.6); Calcium (Corrected) 9.8 mg/dL (8.5-10.1); Carbon Dioxide 19.3 mMol/L (20.0-31.0); Chloride 100 mMol/L (98-107); Creatinine (Component) 1.5 mg/dL (0.6-1.3); Estimated Creatinine Clearance 64.4 mL/min (>60); Globulin 2.1 gm/dL (2.3-3.5); Glucose 140 mg/dL (74-106); Osmolality,Calculated 269 (275-295); Potassium 5.0 mMol/L (3.4-5.1); Sodium 130 mMol/L (136-145); Total Protein 6.2 gm/dL (5.7-8.2); eGFR 54 See Note
[2024-12-02] MEDS: TAMSULOSIN HCL 0.4 MG CAPSULE PO (08:21)
--- NOTE | 2024-12-02 08:48 | ESPR_ITS ---
Documentation for date of: 12/02/24 Subjective Subjective Interval history: The patient was evaluated bedside, currently in ICU, heart rate 24/min on conveyor monitor, blood pressure systolic in the 140s, reported no symptoms of dizziness or chest pain or syncope or dyspnea. EKG shows complete heart block scheduled for pacemaker placement today afternoon. Hines dual-chamber pacemaker placed by Dr. Nam without any complications on 12/02/2024. Chest x-ray post pacemaker placement showed cardiac leads in satisfactory condition, no pneumothorax. Recommend taking Keflex 500 mg twice daily for 10 days Recommend left arm sling for 7 days Will get EKG tomorrow morning to assess rhythm. Recommend no bathing for the next 7 days and only sponge bath and keep the pacemaker site clean. No heparin subcu tonight as well as tomorrow morning. Exam Vital Signs Temp Pulse Resp BP Pulse Ox O2 Del Method 98.8 F 28 L 8 L 146/54 H 90 L Room Air 12/02/24 07:00 12/02/24 08:35 12/02/24 08:35 12/02/24 08:00 12/02/24 08:35 12/02/24 08:00 Narrative Exam General: AOx3, cooperative Skin: Intact, no cyanosis , trace pedal edema noted. Noted multiple keloids on the anterior chest. HEENT: Atraumatic/normocephalic, LOUIS, neck supple Heart: RRR, S1 and S2 without clicks or murmurs Lungs: Clear on auscultation bilaterally, no difficulty breathing Abdomen: Soft, nontender. Bowel sounds present . Vascular: Peripheral pulses palpable Neuro: No focal neurological deficits noted. Objective Labs 12/02/24 05:33 12/02/24 14:20 Labs: Laboratory Results - last 24 hr 12/01/24 12/01/24 12/02/24 13:20 16:27 05:33 WBC 13.0 H 12.9 H RBC 3.79 L 3.47 L Hgb 11.7 L 10.7 L Hct 34.6 L 31.7 L MCV 91 91 MCH 30.9 30.8 MCHC 33.8 33.8 RDW Std Deviation 46.1 H 46.5 H Plt Count 272 223 D Neut % (Auto) 83 H 78 Lymph % (Auto) 9 L 11 Banks % (Auto) 7 9 Eos % (Auto) 1 1 Baso % (Auto) 0 0 Neut # (Auto) 10.8 H 10.1 H Lymph # (Auto) 1.2 1.4 Banks # (Auto) 0.8 1.1 H Eos # (Auto) 0.1 0.2 Baso # (Auto) 0.0 0.0 Immature Gran # (Auto) 0.07 H 0.06 H Absolute Nucleated RBC 0.00 0.00 Immature Gran % 1 H 1 H Nucleated RBC % 0 0 PT 11.1 INR 1.0 APTT 27.2 Sodium 129 L 130 L Potassium 5.0 5.0 Chloride 96 L 100 Carbon Dioxide 21.7 19.3 L Anion Gap 11 11 BUN 33 H 32 H Creatinine 1.6 H 1.5 H Estim Creat Clear Calc 60.7 L 64.4 eGFR 50 L 54 L BUN/Creatinine Ratio 21 H 21 H Glucose [address] Glu mg/dL 163 H Hemoglobin A1c 7.3 H Calculated Osmolality 270 L 269 L Calcium 9.5 9.8 Corrected Calcium 9.5 9.8 Phosphorus 4.0 4.1 Magnesium 1.8 2.2 Total Bilirubin 0.7 0.7 AST 11 < 10 ALT 44 33 Alkaline Phosphatase 89 78 Troponin I < 0.020 B-Natriuretic Peptide 619 H* Total Protein 6.9 6.2 Albumin 4.6 4.1 D Globulin 2.3 2.1 L Albumin/Globulin Ratio 2.0 2.0 Triglycerides 130 Cholesterol 70 L LDL Cholesterol, Calc 21 HDL Cholesterol 23 L Cholesterol/HDL Ratio 3.0 L Lipase 103 H TSH 1.78 Free T4 1.57 Ur Collection Type Clean Catch Urine Color Lt-Yellow Urine Clarity Clear Urine pH 6.0 Ur Specific [place] 1.008 Urine Protein Negative Urine Glucose (UA) Negative Urine Ketones Negative Urine Blood Negative Urine Nitrite Negative Urine Bilirubin Negative Urine Urobilinogen (Auto) Negative Ur Leukocyte Esterase Negative Urine RBC 0 Urine WBC 1 Ur Squamous Epith Cells 0 Urine Bacteria None Blood Type A Positive Antibody Screen NEGATIVE Blood Bank Wristband ID Yes Quality Measures Quality Measures none Assessment & Plan Assessment Current Active Medications: Generic Name Dose Route Start Last Admin Trade Name Freq PRN Reason Stop Dose Admin Acetaminophen 650 mg 12/01/24 15:52 Acetaminophen 325 Mg Tablet PO 12/31/24 15:51 Q4HR PRN PAIN SCALE 1-3 (mild Acetaminophen 650 mg 12/01/24 15:52 Acetaminophen Supp 650 Mg Supp CA 12/31/24 15:51 Q4HR PRN PAIN SCALE 1-3 (mild Atropine Sulfate 1 mg 12/01/24 17:24 Atropine Sulf Inj 0.1 Mg/Ml Syr 10 Ml IV PRN PRN symptomatic bradycardia Dextrose 25 ml 12/01/24 18:07 Dextrose 50%-Water Inj 50 Ml Syringe IV 12/31/24 18:06 Q15MIN PRN BG 50-70 responsive npo pt Dextrose 50 ml 12/01/24 18:07 Dextrose 50%-Water Inj 50 Ml Syringe IV 12/31/24 18:06 Q15MIN PRN BG <50 OR BG <70 & pt unresponsive Glucagon 1 mg 12/01/24 18:07 Glucagon Inj 1 Mg Vial IM Q15MIN PRN BG <70, and no IV access Heparin Sodium (Porcine) 5,000 unit 12/01/24 22:00 12/01/24 21:51 Heparin Sod Inj 5000 Unit/Ml Vial SC 12/15/24 21:59 5,000 unit Q8HR LINDA Administration Ondansetron HCl 4 mg 12/02/24 03:24 12/02/24 03:36 Ondansetron Inj 2 Mg/Ml Inj 2 Ml IVP 01/01/25 03:23 4 mg Q6HR PRN Administration NAUSEA OR VOMITING Protocol Pantoprazole Sodium 40 mg 12/02/24 09:00 12/02/24 08:20 Pantoprazole Inj 40 Mg Vial IVP 01/01/25 08:59 40 mg QDAY LINDA Administration Tamsulosin HCl 0.4 mg 12/01/24 18:15 12/02/24 08:21 Tamsulosin Hcl 0.4 Mg Capsule PO 12/31/24 18:14 0.4 mg DAILY LINDA Administration Plan The patient is a 54-year-old male with a prior history of hypertension, hyperlipidemia, gout, diabetes mellitus type 2, history of BPH, history of inguinal hernia, 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 Patient denied dizziness or syncopal episodes, but did endorse feeling of generalized weakness when he tries to stand and walk. The patient reported that he thinks he got food poisoning for the past 2 weeks, reported abdominal pain and diarrhea for the past couple of weeks. Denied nausea or vomiting. Of note, the patient also reported that he saw a court collections officer 4 years ago for cardiac clearance prior to his surgery for inguinal hernia and left testicular tumor, at that time he had a stress test and was told everything was normal. Problems: 1. Bradycardia, third-degree AV block s/p Dual chamber pacemaker 2. Acute kidney injury - rule out cardiorenal vs pre renal 3. Hyponatremia 4. Mild Pleural effusion 5. History of hypertension 6. History of diabetes mellitus 7. History of left testicular tumor s/p radical orchidectomy 8. History of anemia Noted third-degree AV block on EKG, with ventricular escape rhythm of 30 to 35 bpm. patient is asymptomatic at the moment, did complain generalized weakness but patient reports having the symptoms for the past couple of weeks since onset of diarrhea. Endorsed presyncopal symptoms over last few weeks, Currently denies syncope or dizziness, vitals stable. Was given 1 L IV fluid bolus, 1 mg IV atropine and pacer pads were placed. At the time of evaluation patient continues to deny any symptoms of chest pain or pressure, or dizziness. Heart rate 32/min blood pressure systolic in the 140s. Recommend to give IV fluids for KELLY, recommend to keep pacing pads on at all times, keep atropine at bedside, if patient develops symptomatic bradycardia, ordered stat echocardiogram. Echocardiogram yesterday showed LV function hyperkinetic with an EF of 65 to 70%, normal LV size and wall thickness, mild MR and TR, moderate aortic valve sclerosis without stenosis. Elevated LVOT velocities likely secondary to hyperkinetic contraction of LV in the setting of severe bradycardia. Hypoosmolar hyponatremia likely secondary to hypovolemia, in the setting of diarrhea and prerenal KELLY. Acute kidney injury likely prerenal in the setting of diarrhea, CT did show mild free fluid in abdomen and mild right pleural effusion but patient does not seem to be clinically in decompensated heart failure, received IV fluid bolus in ED, will discontinue IV fluids as patient has pleural effusion and mild ascites. CT abdomen pelvis also reported mild right pleural effusion and mild free fluid in abdomen, slight lipase elevation, no clinical concern of pancreatitis at this point, will defer to primary team. Pleural effusion and mild ascites possibly due to decreased cardiac output in the setting of bradycardia. Did notice hypertension patient's blood pressure 173 systolic, would recommend holding off on blood pressure medications as patient is high risk for developing cardiogenic shock, if blood pressure continues to be elevated can consider hydralazine as needed. ? EKG shows complete heart block scheduled for pacemaker placement today afternoon. Dual-chamber pacemaker placed, chest x-ray post pacemaker placement showed cardiac leads in satisfactory condition, no pneumothorax. - the patient can be discharged tomorrow , recommend to follow up with outpatient cardiology Dr Nam in one week. - Recommend taking Keflex 500 mg twice daily for 10 days - Recommend left arm sling for 7 days - Will get EKG tomorrow morning to assess rhythm. - Recommend no bathing for the next 7 days and only sponge bath and keep the pacemaker site clean. - Recommend to not give any aspirin or heparin subcu tomorrow morning. Rest of the management deferred to primary team. Thank you for cardiology consultation. We appreciate the opportunity to participate in this patient's care. Will continue to follow-up on this patient This case was discussed with court collections officer, Dr. Nam. Uday Orozco MD PG3 Attending Provider Attestation/Addendum I have personally seen and examined the patient separately on the above date of service and discussed the plan of care with the resident. I reviewed the resident Dr. Frye consultation progress note and agree with the resident findings and plan in the note above and have also edited the documentation to reflect my findings and plan. Rodney Nam M.D. Interventional Cardiology
--- NOTE | 2024-12-02 10:06 | PC.SS ---
ADOLESCENT PSYCHIATRIST conducted bedside contact with the patient conduct initial assessment and to discuss discharge planning.? Patient confirmed demographic information.? Patient resides at home with spouse, Elizabeth Blair; .? Patient is currently employed.? Patient does not utilize any form of DME to assist with ambulation.? Patient does not utilize home oxygen.? Patient describes the ability to complete ADL?s independently.? Patient identified spouse, Elizabeth Blair; as surrogate medical decision maker.? Patient?s PCP is Dr. Parra, [facility].? Patient does not participate with dialysis.? Patient does not possess any specialty providers.? Patient possesses history of diabetes.? Plan is for the patient to return home at the time of discharge.? Family will provide transportation on behalf of the patient. ?No further discharge needs identified by the patient.? No further intervention required at this time, social services manager will be available to address any further concerns.? Next of Kin: Elizabeth Blair D/C Plan: Home
--- NOTE | 2024-12-02 10:08 | PC.SS ---
Patient's physical address is: [address] [address].
--- NOTE | 2024-12-02 10:09 | PC.SS ---
Update: Patient is scheduled to obtain a pacemaker today. Dr. Nam is consulting.
--- NOTE | 2024-12-02 10:29 | ESPR_ITS ---
<Statement entered by Sinan Almodovar MD - 12/02/24 22:54> Patient is seen and examined at bedside in the ICU. Noted no acute overnight events. Still bradycardic with heart rate around 25-30 overnight but no episodes of hypotension were noted. Overnight patient had urine output of around 1.3 L. Patient denies any other complaints today. Labs done this morning showed WBC 12.9, sodium 130, bicarb 19.3, BUN 32, creatinine 1.5. Patient was taken to cardiac Home Economics Extension Worker by Dr. Nam and permanent pacemaker was placed successfully. No further episodes of bradycardia noted and patient was paced successfully. Repeat labs done around 2:20 PM showed sodium of 128, potassium 5.2, BUN 33, creatinine up trended to 1.8 but patient noted to have adequate urine output. Patient noted to have hyponatremia since the time of admission, likely due to hydrochlorothiazide use which is now worsened in the setting of mild KELLY. KELLY could be due to ongoing bradycardia causing decreased cardiac output versus cardiorenal syndrome. Currently as patient is making adequate amount of urine output, renal ultrasound, urine electrolytes is ordered. Will monitor renal functions for now and avoid nephrotoxic medications. As the patient is hemodynamically stable and does not ICU level of care, will downgrade patient to floors for further management. Patient plan of care was discussed with the Purchasing Engineer, Dr. Servando Almodovar, PGY2 Documentation for date of: 12/02/24 Subjective Subjective Interval history: A 54-year-old male with a history of hypertension, hyperlipidemia, gout, ady-[id number] diabetes mellitus type 2, BPH, inguinal hernia repair, and a left radical orchidectomy sought care at a walk-in clinic for lower abdominal pain. There, he was found to have symptomatic bradycardia given that he has been complaining of dizziness, overall tiredness or lethargic along with presyncopal episodes and was sent to the emergency department. His current symptoms, which began on November 27, include left lower abdominal pain and loose stools three times a day, which he attributes to food poisoning, although no family members are ill. He denies nausea, vomiting, chest pain, or shortness of breath, but reports generalized weakness and shaking that make it difficult to walk, and dizziness only when it's hot outside. Upon arrival, an EKG confirmed a third- degree AV block with a heart rate of 33 bpm. No beta escobar or calcium channel escobar was used. 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 Four years ago, he underwent a left heart catheterization for cardiac clearance for his hernia and testicular tumor surgeries and was told his heart was normal. Interval history 12/02/24 Patient has been admitted to the ICU for very close monitoring and requiring placement of a permanent pacemaker. 12/03/24 No acute overnight events. Heart rate ranged from 25-30, patient was asymptomatic. Patient underwent placement of the pacemaker. He is medically stable to be downgraded to the medical floor. Exam Vital Signs Temp Pulse Resp BP Pulse Ox O2 Del Method 98.8 F 26 L 18 146/52 H 88 L Room Air 12/02/24 07:00 12/02/24 09:20 12/02/24 09:20 12/02/24 09:00 12/02/24 09:20 12/02/24 09:00 Narrative Exam General: AOx3, cooperative, in no acute distress HEENT: Atraumatic/normocephalic, [place], neck supple. Heart: RRR, S1 and S2 without clicks or murmurs Lungs: Good bilateral air entry, no work of breathing, no added sounds Abdomen: Nondistended soft, mild tenderness in the left lower quadrant. Bowel sounds present Vascular: Peripheral pulses palpable Skin: Intact, no cyanosis , trace pedal edema noted. Noted multiple keloids on the anterior chest. Ecchymoses on left abdomen from adding cream for pain relief Neuro: No focal neurological deficits noted. GCS 15 Psych: Appropriate mood and affect Objective Labs 12/03/24 04:20 12/03/24 04:20 Labs: Laboratory Results - last 24 hr 12/01/24 12/01/24 12/02/24 13:20 16:27 05:33 WBC 13.0 H 12.9 H RBC 3.79 L 3.47 L Hgb 11.7 L 10.7 L Hct 34.6 L 31.7 L MCV 91 91 MCH 30.9 30.8 MCHC 33.8 33.8 RDW Std Deviation 46.1 H 46.5 H Plt Count 272 223 D Neut % (Auto) 83 H 78 Lymph % (Auto) 9 L 11 Garza % (Auto) 7 9 Eos % (Auto) 1 1 Baso % (Auto) 0 0 Neut # (Auto) 10.8 H 10.1 H Lymph # (Auto) 1.2 1.4 Garza # (Auto) 0.8 1.1 H Eos # (Auto) 0.1 0.2 Baso # (Auto) 0.0 0.0 Immature Gran # (Auto) 0.07 H 0.06 H Absolute Nucleated RBC 0.00 0.00 Immature Gran % 1 H 1 H Nucleated RBC % 0 0 PT 11.1 INR 1.0 APTT 27.2 Sodium 129 L 130 L Potassium 5.0 5.0 Chloride 96 L 100 Carbon Dioxide 21.7 19.3 L Anion Gap 11 11 BUN 33 H 32 H Creatinine 1.6 H 1.5 H Estim Creat Clear Calc 60.7 L 64.4 eGFR 50 L 54 L BUN/Creatinine Ratio 21 H 21 H Glucose [address] Glu mg/dL 163 H Hemoglobin A1c 7.3 H Calculated Osmolality 270 L 269 L Calcium 9.5 9.8 Corrected Calcium 9.5 9.8 Phosphorus 4.0 4.1 Magnesium 1.8 2.2 Total Bilirubin 0.7 0.7 AST 11 < 10 ALT 44 33 Alkaline Phosphatase 89 78 Troponin I < 0.020 B-Natriuretic Peptide 619 H* Total Protein 6.9 6.2 Albumin 4.6 4.1 D Globulin 2.3 2.1 L Albumin/Globulin Ratio 2.0 2.0 Triglycerides 130 Cholesterol 70 L LDL Cholesterol, Calc 21 HDL Cholesterol 23 L Cholesterol/HDL Ratio 3.0 L Lipase 103 H TSH 1.78 Free T4 1.57 Ur Collection Type Clean Catch Urine Color Lt-Yellow Urine Clarity Clear Urine pH 6.0 Ur Specific [place] 1.008 Urine Protein Negative Urine Glucose (UA) Negative Urine Ketones Negative Urine Blood Negative Urine Nitrite Negative Urine Bilirubin Negative Urine Urobilinogen (Auto) Negative Ur Leukocyte Esterase Negative Urine RBC 0 Urine WBC 1 Ur Squamous Epith Cells 0 Urine Bacteria None Blood Type A Positive Antibody Screen NEGATIVE Blood Bank Wristband ID Yes Quality Measures Quality Measures none Assessment & Plan Assessment Current Active Medications: Generic Name Dose Route Start Last Admin Trade Name Freq PRN Reason Stop Dose Admin Acetaminophen 650 mg 12/01/24 15:52 Acetaminophen 325 Mg Tablet PO 12/31/24 15:51 Q4HR PRN PAIN SCALE 1-3 (mild Acetaminophen 650 mg 12/01/24 15:52 Acetaminophen Supp 650 Mg Supp RI 12/31/24 15:51 Q4HR PRN PAIN SCALE 1-3 (mild Atropine Sulfate 1 mg 12/01/24 17:24 Atropine Sulf Inj 0.1 Mg/Ml Syr 10 Ml IV PRN PRN symptomatic bradycardia Dextrose 25 ml 12/01/24 18:07 Dextrose 50%-Water Inj 50 Ml Syringe IV 12/31/24 18:06 Q15MIN PRN BG 50-70 responsive npo pt Dextrose 50 ml 12/01/24 18:07 Dextrose 50%-Water Inj 50 Ml Syringe IV 12/31/24 18:06 Q15MIN PRN BG <50 OR BG <70 & pt unresponsive Glucagon 1 mg 12/01/24 18:07 Glucagon Inj 1 Mg Vial IM Q15MIN PRN BG <70, and no IV access Heparin Sodium (Porcine) 5,000 unit 12/01/24 22:00 12/01/24 21:51 Heparin Sod Inj 5000 Unit/Ml Vial SC 12/15/24 21:59 5,000 unit Q8HR LINDA Administration Ondansetron HCl 4 mg 12/02/24 03:24 12/02/24 03:36 Ondansetron Inj 2 Mg/Ml Inj 2 Ml IVP 01/01/25 03:23 4 mg Q6HR PRN Administration NAUSEA OR VOMITING Protocol Pantoprazole Sodium 40 mg 12/02/24 09:00 12/02/24 08:20 Pantoprazole Inj 40 Mg Vial IVP 01/01/25 08:59 40 mg QDAY LINDA Administration Tamsulosin HCl 0.4 mg 12/01/24 18:15 12/02/24 08:21 Tamsulosin Hcl 0.4 Mg Capsule PO 12/31/24 18:14 0.4 mg DAILY LINDA Administration Plan Summary: 54-year-old male with a history of hypertension, hyperlipidemia, gout, qrw-beswrmv-[id number] diabetes mellitus type 2, BPH, inguinal hernia repair, and a left radical orchidectomy sought care at a walk-in clinic for lower abdominal pain. There, he was found to have symptomatic bradycardia given that he has been complaining of dizziness, overall tiredness or lethargic along with presyncopal episodes and was sent to the emergency department for evaluation of bradycardia. 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 CVS: #Bradycardia, third-degree heart block DDx: [place], CAD, cardiomyopathy, heart valve disease, beta-escobar use, CHF No clear reversible causes Troponin negative No use of BB Plan ?Permanent pacemaker placed today ?Cardiology following, follow recommendations #Hx of essential hypertension Plan ? No active intervention at this time until bradycardia is resolved ? May consider hydralazine if blood pressure too high #Possible new diagnosis CHF Trace pitting edema bilaterally BNP 619 Chest x-ray shows vascular congestion Echo showed EF 65 to 70%, cannot determine diastolic function because of low heart rate, mild mitral regurg and tricuspid regurg Plan ?Strict I/Os ?Cardiology following, follow recommendations PULM: No active issues. GI: #Mild Ascites CT abdo/pelvis showed mild free fluid in abdomen Possibly due to decreased cardiac output in the setting of bradycardia LFTs normal Plan -Monitor RENAL: #KELLY Unclear etiology: Prerenal vs Intrarenal vs Postrenal May be cardiorenal vs low CO output state from bradycardia Creatinine 1.8 Received 1.5 L yesterday Patient did recieve contrast Plan ? With improvement in HR Cr may improve #Hyperkalemia Potassium 5.2 Plan ?Check renal panel at 8 PM today if still high give hyperkalemia treatment #Hyponatremia Likely secondary to diarrhea Plan ? Check lab in a.m. ENDO: #Type 2 diabetes, [id number] A1c 7.3 Not well controlled ? Blood glucose checks ?Insulin sliding scale ? 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 ID: No active issues. Health Maintenance: Diet: Renal diet GI prophylaxis: Protonix daily DVT prophylaxis: Heparin 5000 units every 8 hours Antibiotics: None indicated at this time CODE STATUS: Full Disposition: ICU for monitoring Case discussed with my attending Dr. Al, and senior resident, Dr. Scooby Schneider MD PGY-1 Attending Provider Attestation/Addendum Patient seen and examined with resident, agree with above. In brief is a 54-year-old male admitted to the hospital for third-degree heart block. The patient is in the ICU for close monitoring and is scheduled for permanent pacemaker today. He is awake alert and oriented. Lungs clear to auscultation bilaterally, heart rate extremely bradycardic. Abdomen is soft nontender bowel sounds present, no edema. Patient also does complain of some loose stools that he has been having over the last several days. He presented with some acute kidney injury and has received IV fluids. Overall he appears to be doing well. He denies any chest pain, shortness of breath, dizziness, presyncope or additional symptoms. He has not required pacing for his bradycardia nor has he required a dopamine drip. Case discussed with ICU team and cardiology Labs, imaging and records reviewed Approximately 39 minutes required for evaluation, exam, review, intervention, discussion and formulation of plan of care
[2024-12-02 12:44] LABS: Cocci Serology, IgM Negative (Negative)
[2024-12-02] MEDS: VANCOMYCIN/NS 500 MG IVPB 100 ML 120 MG IV (14:00)
--- NOTE | 2024-12-02 14:30 | XR_ITS ---
Examination: AP chest single view Technique one AP portable upright chest single view Date and time: December 02, 2024 1408 hours INDICATIONS: Postop pacemaker insertion. FINDINGS: Transvenous dual-chamber bipolar cardiac leads satisfactory position Normal heart size No pneumothorax Mild osteopenia IMPRESSION: Cardiac leads satisfactory position
[2024-12-02 14:55] LABS: Albumin, Serum 4.5 gm/dL (3.5-5.0); Anion Gap 9 (7-16); BUN/Creatinine Ratio 18 Ratio (12-20); Blood Urea Nitrogen 33 mg/dL (9-23); Calcium 9.8 mg/dL (8.3-10.6); Calcium (Corrected) 9.8 mg/dL (8.5-10.1); Carbon Dioxide 20.0 mMol/L (20.0-31.0); Chloride 99 mMol/L (98-107); Creatinine (Component) 1.8 mg/dL (0.6-1.3); Estimated Creatinine Clearance 53.7 mL/min (>60); Glucose 176 mg/dL (74-106); Osmolality,Calculated 268 (275-295); Phosphorous 3.9 mg/dL (2.4-5.1); Potassium 5.2 mMol/L (3.4-5.1); Sodium 128 mMol/L (136-145); eGFR 44 See Note
--- NOTE | 2024-12-02 15:09 | XR_ITS ---
Examination: Retroperitoneal ultrasound, complete Technique: Multiple high resolution grayscale images of the retroperitoneum obtained, including kidneys and bladder. Exam date and time:December 02, 2024 1823 hours INDICATIONS: Pelvic pain flank pain beginning 2 days ago FINDINGS: Right kidney 9.6 cm renal cortex 2.0 cm Neck kidney 10.9 cm cortex 2.0 cm Mild renal parenchymal scar formation No hydronephrosis No bladder mass or bladder calculi, bladder prevoid volume 113 cc Negative for prostatomegaly no prostate nodules IMPRESSION: Small kidneys, no hydronephrosis or renal calculi Mild renal parenchymal scar formation
--- NOTE | 2024-12-02 16:02 | ESPR_ITS ---
<Statement entered by Latia Ren MD - 12/14/24 07:43> I reviewed above note and agree with findings and plans. I have also personally examined the patient with medicine team and went over assessment and plan with medical team including manager of internal audit and resident physician. <Statement entered by Amy Boo MD - 12/02/24 17:09> Patient was seen and examined at bedside. I agree on the assessment and plan on this note as documented by resident Shanell Gould PGY1. 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 Patient was sent over by [facility] after being seen in office, patient complained of chronic diarrhea for greater than 2 weeks. Patient was seen in the ED yesterday for admission however was upgraded to ICU as patient needed close monitoring for symptomatic bradycardia, patient's symptoms for bradycardia were significant dizziness on walking long distances otherwise no symptoms at rest. Patient underwent permanent pacemaker placement in the cardiac [employer] today and was downgraded to telemetry for further management. Physical exam pertinent for dressing intact left chest, mild blood noted on dressing, 1+ bilateral lower extremity edema. Labs today significant for anemia, KELLY noted creatinine 1.8, potassium 5.2 KELLY likely prerenal versus cardiorenal versus renal, otherwise patient tested negative for coccidiomycosis. Renal ultrasound and repeat renal panel ordered by ICU team, will follow-up. Patient downgraded to telemetry for further management, cardiology following. Case discussed with attending Dr. Gela Boo MD PGY-2 Documentation for date of: 12/02/24 Subjective Subjective Interval history: Was admitted to [facility] on 12/01 to the ICU for symptomatic bradycardia. Patient visited his PCP office for 1 to 2 weeks of diarrhea which he attributes to eating bad food had a food truck. However at the office he was noted to be bradycardic in the 30s and was sent to [facility] ED. Patient endorses that he has been feeling lethargic for the past few months and that recently he has been feeling dizzy after walking long distances and had 1 presyncopal episode. Patient was admitted to the ICU to monitor bradycardia with pacer pads on if required. Patient was stable and downgraded to floors today. Patient was seen in the ICU status post pacemaker implantation. Patient is feeling cold, denies chest pain or abdominal pain or shortness of breath. States that he is urinating well with no urinary symptoms. Status post pacemaker. Any admission creatinine 1.6, now 1.8 with a baseline of 0.8-1.0. White count still elevated 12.9, sodium 128, potassium 5.2, BUN stable 33. Post pacemaker placement, patient is shivering but temperature 98.6 at bedside. Glucose in the 150s. Exam Vital Signs Temp Pulse Resp BP Pulse Ox O2 Del Method O2 Flow Rate 97.6 F 69 18 137/67 H 98 Room Air 2 12/02/24 15:30 12/02/24 15:30 12/02/24 15:30 12/02/24 15:30 12/02/24 15:30 12/02/24 15:30 12/02/24 14:45 Narrative Exam GENERAL: AOx3, no acute distress, obese HEENT: NC/AT, mucous membranes moist, bilateral sclera anicteric CARDIOVASCULAR: regular rate and rhythm, S1/S2 present, no murmurs appreciated + pacemaker upper left pectoral dressed with slight blood PULMONARY: clear to auscultation bilaterally, no rales/rhonchi/wheezes ABDOMINAL: soft, non-tender, non-distended, no rebound/guarding, bowel sounds present EXTREMITIES: BLE 1+ pitting edema SKIN: warm and dry, intact, no rashes +multiple keloids on chest +facial rash NEURO: CN II-XII grossly intact, no focal deficits, alert, following commands Objective Labs 12/02/24 05:33 12/02/24 14:20 Labs: Laboratory Results - last 24 hr 12/01/24 12/01/24 12/01/24 13:20 16:27 17:55 WBC RBC Hgb Hct MCV MCH MCHC RDW Std Deviation Plt Count Neut % (Auto) Lymph % (Auto) [place] % (Auto) Eos % (Auto) Baso % (Auto) Neut # (Auto) Lymph # (Auto) [place] # (Auto) Eos # (Auto) Baso # (Auto) Immature Gran # (Auto) Absolute Nucleated RBC Immature Gran % Nucleated RBC % Sodium Potassium Chloride Carbon Dioxide Anion Gap BUN Creatinine Estim Creat Clear Calc eGFR BUN/Creatinine Ratio Glucose Estimated Ave Glu mg/dL 163 H Hemoglobin A1c 7.3 H Calculated Osmolality Calcium Corrected Calcium Phosphorus Magnesium Total Bilirubin AST ALT Alkaline Phosphatase Total Protein Albumin Globulin Albumin/Globulin Ratio Triglycerides Cholesterol LDL Cholesterol, Calc HDL Cholesterol Cholesterol/HDL Ratio Ur Collection Type Clean Catch Urine Color Lt-Yellow Urine Clarity Clear Urine pH 6.0 Ur Specific [place] 1.008 Urine Protein Negative Urine Glucose (UA) Negative Urine Ketones Negative Urine Blood Negative Urine Nitrite Negative Urine Bilirubin Negative Urine Urobilinogen (Auto) Negative Ur Leukocyte Esterase Negative Urine RBC 0 Urine WBC 1 Ur Squamous Epith Cells 0 Urine Bacteria None Coccidioides IgM Ab Negative 12/02/24 12/02/24 05:33 14:20 WBC 12.9 H RBC 3.47 L Hgb 10.7 L Hct 31.7 L MCV 91 MCH 30.8 MCHC 33.8 RDW Std Deviation 46.5 H Plt Count 223 D Neut % (Auto) 78 Lymph % (Auto) 11 [place] % (Auto) 9 Eos % (Auto) 1 Baso % (Auto) 0 Neut # (Auto) 10.1 H Lymph # (Auto) 1.4 [place] # (Auto) 1.1 H Eos # (Auto) 0.2 Baso # (Auto) 0.0 Immature Gran # (Auto) 0.06 H Absolute Nucleated RBC 0.00 Immature Gran % 1 H Nucleated RBC % 0 Sodium 130 L 128 L Potassium 5.0 5.2 H Chloride 100 99 Carbon Dioxide 19.3 L 20.0 Anion Gap 11 9 BUN 32 H 33 H Creatinine 1.5 H 1.8 H Estim Creat Clear Calc 64.4 53.7 L eGFR 54 L 44 L BUN/Creatinine Ratio 21 H 18 Glucose [address] Glu mg/dL Hemoglobin A1c Calculated Osmolality 269 L 268 L Calcium 9.8 9.8 Corrected Calcium 9.8 9.8 Phosphorus 4.1 3.9 Magnesium 2.2 Total Bilirubin 0.7 AST < 10 ALT 33 Alkaline Phosphatase 78 Total Protein 6.2 Albumin 4.1 D 4.5 Globulin 2.1 L Albumin/Globulin Ratio 2.0 Triglycerides 130 Cholesterol 70 L LDL Cholesterol, Calc 21 HDL Cholesterol 23 L Cholesterol/HDL Ratio 3.0 L Ur Collection Type Urine Color Urine Clarity Urine pH Ur Specific [place] Urine Protein Urine Glucose (UA) Urine Ketones Urine Blood Urine Nitrite Urine Bilirubin Urine Urobilinogen (Auto) Ur Leukocyte Esterase Urine RBC Urine WBC Ur Squamous Epith Cells Urine Bacteria Coccidioides IgM Ab Quality Measures Quality Measures none Assessment & Plan Assessment Current Active Medications: Generic Name Dose Route Start Last Admin Trade Name Freq PRN Reason Stop Dose Admin Acetaminophen 650 mg 12/01/24 15:52 Acetaminophen 325 Mg Tablet PO 12/31/24 15:51 Q4HR PRN PAIN SCALE 1-3 (mild Acetaminophen 650 mg 12/01/24 15:52 Acetaminophen Supp 650 Mg Supp WA 12/31/24 15:51 Q4HR PRN PAIN SCALE 1-3 (mild Atorvastatin Calcium 10 mg 12/02/24 21:00 Atorvastatin Calcium 10 Mg Tablet PO 01/01/25 20:59 HS LINDA Atropine Sulfate 1 mg 12/01/24 17:24 Atropine Sulf Inj 0.1 Mg/Ml Syr 10 Ml IV PRN PRN symptomatic bradycardia Cephalexin HCl 500 mg 12/02/24 21:00 Cephalexin 250 Mg Capsule PO 12/12/24 20:59 BID LINDA Dextrose 25 ml 12/01/24 18:07 Dextrose 50%-Water Inj 50 Ml Syringe IV 12/31/24 18:06 Q15MIN PRN BG 50-70 responsive npo pt Dextrose 50 ml 12/01/24 18:07 Dextrose 50%-Water Inj 50 Ml Syringe IV 12/31/24 18:06 Q15MIN PRN BG <50 OR BG <70 & pt unresponsive Glucagon 1 mg 12/01/24 18:07 Glucagon Inj 1 Mg Vial IM Q15MIN PRN BG <70, and no IV access Ondansetron HCl 4 mg 12/02/24 03:24 12/02/24 03:36 Ondansetron Inj 2 Mg/Ml Inj 2 Ml IVP 01/01/25 03:23 4 mg Q6HR PRN Administration NAUSEA OR VOMITING Protocol Tamsulosin HCl 0.4 mg 12/01/24 18:15 12/02/24 08:21 Tamsulosin Hcl 0.4 Mg Capsule PO 12/31/24 18:14 0.4 mg DAILY [facility] Administration Plan Jorge Luis Blair is a 54M with a pmhx significant for HTN, HLD, gout, NIDDM2, BPH, inguinal hernia repair, and a left radical orchidectomy went to PCP for diarrhea x1 week but sent to [facility] on 12/01 for symptomatic bradycardia. #KELLY #Hyponatremia #Hyperkalemia Creatinine on admission 1.6, baseline 0.8-1.0, Na 129 and K 5.0. No history of kidney disease per patient. KELLY ddx: cardiorenal syndrome type I vs type 2, possible viral GI infection with elevated WBC 13, medication induced, diarrhea, possible volume overload from CHF exacerbation. Unlikely contrast induced patient due to pacemaker being placed today and contrast induced KELLY usually requires ~48 hours to develop. Patient was admitted in 2019 for hyponatremia secondary to HCTZ and polydipsia. Current hyponatremia likely secondary to continuation of nephrotoxic home meds (HCTZ, lisinopril, allopurinol, indomethacin) combined with volume loss from 1-2 weeks of diarrhea. Hyperkalemia possible 2/2 to KELLY. Plan: - CTM CMP and trend Cr - F/u repeat PM CMP - F/u urine lytes - Hold IVF for now iso possible CHF #Symptomatic bradycardia, third degree heart block s/p pacemaker 12/02 Patient presented with HR low 30s with symptoms of occasional dizziness/presyncope when walking long distances and lethargy for the past few months. Denies any history of DE, heart failure or cardiac disease. Home medications show patient is on metoprolol but per , he does not take it. Admission BNP 619, trops neg. EKG on admission showed 3rd degree AV block with rate 32. Patient was admitted to floors, downgraded on 12/02 s/p pacemaker placement. Echo showed hyperkinetic LV function with EF 65-70%, diastolic function cannot be graded because of arrhythmia with complete heart block, mild MR and TR, aortic valve not well-visualized and cannot comment on tricuspid versus bicuspid, moderate aortic valve sclerosis without stenosis. Plan: - CTM telemetry and symptoms - Vanc x1 and Keflex 500 mg BID (12/02- - Cardiology consulted, appreciate recs: no beta escobar, no CCB, or aricept or rate controlling agents, no IVF for now - Strict I&Os, daily weights, fluid restriction 1.5L - Keep K>4 and Mg>2 #Suspicion of new CHF Patient has no history of heart disease. Denies orthopnea, PND, or exertional dyspnea. On physical exam, BLE 1+ edema. CXR shows mild vascular congestion. CTAP shows mild right pleural fluid, mild fluid subscapular to liver, and free mild free fluid in the abdomen Echo results as above. Plan: - Will consider repeating echo at cardiology discretion - Consider diuresis at cardiology discretion #Leukocytosis Admission WBC 13 iso of 1-2 weeks of diarrhea correlated with consumption of food at food truck, likely viral gastroenteritis. Ddx includes reactive vs infection. CXR and UA negative for signs of infection. Relevant CTAP findings: gallbladder wall appears to be thickened, however Tbili wnl with no RUQ pain Plan: - CTM WBC #HTN Patient takes amlodipine 10 mg QD, HCTZ 25 mg QD and Linsipril 20 mg QD. Plan: - Hold HTN medications iso soft BPs (110-130 SBP) #NIDDM2 #HLD Patient takes Metformin 500 mg and reports inconsistency. HbA1c 7.3. Lipid panel cholesterol low 70, trig wnl. Plan: - Hold metformin while admitted - Continue atorvastatin 10 mg qhs - SSI #BPH Patient on tamsulosin 0.4 mg QD at home. Denies any urinary symptoms. Plan: - Continue home tamsulosin 0.4 mg QD - Bladder scans prn ordered, straight cath >350cc #Normocytic Anemia Hgb 11.7 on admission MCV 91, prior Hgb 11-12 in 2020. No signs of acute bleeding. Plan: - F/u iron panel and ferritin #Gout Patient has hx of gout. 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 Plan: - F/u cocci IgG Hospital management: Lines: peripheral IV Diet: Renal, fluid restriction 1.5L Bowel: Senna/Docusate GI prophylaxis: PO pantoprazole DVT prophylaxis: heparin q8 Disposition: med tele s/p pacemaker implantation CODE STATUS: Full code Plan of care discussed with attending Dr. Ren, and PGY-2 Dr. Boo. Shanell Gould, DO PGY-1 Internal Medicine
[2024-12-02 17:12] LABS: Vitamin B12 810 pg/mL (211-911)
[2024-12-02 19:18] LABS: Chloride,Urine Random 32.1 mMol/L (55.0-125.0); Potassium,Urine Random < 10 mMol/L (12-62); Sodium,Urine Random 33.4 mMol/L (20.0-110.0)
--- NOTE | 2024-12-02 19:26 | PD.SUROPNT ---
Date of Procedure 12/02/24 Pre Op Diagnosis 1. Complete heart block or third-degree heart block 2. Severe symptomatic bradycardia Post Op Diagnosis Successful implantation of dual-chamber AV sequential permanent pacemaker-Hines Procedure Procedure 1. Implantation of dual-chamber Hines AV sequential permanent pacemaker. CPT 56863 2. Conscious sedation for 60 min. 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 Patient apparently has been having dizziness and presyncopal episodes and about 2 positive sensation at home on and off for the past couple of weeks. He is started having some left lower quadrant abdominal pain along with diarrhea over the past 2 days and went to see his primary care doctor where he was found to have bradycardia and was sent to the emergency department. In the emergency department patient was found to have third-degree AV block or complete heart block and cardiology was consulted. Patient was recommended a permanent pacemaker given the complete heart block which is a class I indication indication. Patient was explained the risk benefits and alternatives of performing the procedure including the risk of bleeding, infection as well as perforation with hemopericardium in detail. Patient understands the risks and wishes to proceed with the procedure. Consent obtained for the same. H&P updated and placed in the chart. Procedure Description The patient was brought to cardiac catheterization laboratory where she was given total of 3 mg Versed and 75 mcg of fentanyl for sedation.? A micropuncture was used to cannulate the left subclavian vein twice and two guidewires were introduced.? A linear incision was made, with blunt dissection a pocket was created.? 2 6 Afghan sheaths were introduced into the subclavian vein.? Atrial and ventricular leads advanced into the right atrial appendage and right ventricular apex respectively.? Active fixation leads screw-in technique was used to secure the leads and thresholds were excellent.? After obtaining satisfactory threshold, both leads were anchored to the pectoral fascia, 2-0 silk suture.? Subsequently Hines dual chamber pacemaker generator attached to the leads, placed in the pocket, secured to the fascia with 2-0 silk suture.? Subsequently, subcutaneous tissue was closed using 2-0 chromic continuous suture.? Skin was closed using peggy.? The patient was given 1 gram of Ancef preprocedure.? The patient tolerated the operation well with no complications.? Details of device as follows:? Hines manager massage department Assurity MRI PM 2272, pacemaker serial number is [id number] Atrial lead is Hines Ultipace 46 cm lead LPA 1231 -serial [id number] Atrial lead is Hines Ultipace 52 cm lead LPA 1231 -serial [id number] The thresholds are as follows:? Atrial capturing threshold 1.25 Volts @ 0.4 ms, sensing 2.1 millivolts, lead impedance 550 ohms. Ventricular capturing threshold 0.75 Volts @ 0.4 ms.? Lead impedance 650 ohms.? The patient is programmed DDD mode, baseline rate of 60 bpm, maximum track rate 130 beats bpm, Paced and Sensed AV delay of 180 ms. Patient will receive 500 mg of IV vancomycin and left arm sling postoperatively prior to discharge. Postoperative chest x-ray showed no evidence of any pneumothorax and cardiac leads were in satisfactory position. Patient recommended to not to lift any weights with his left hand and avoid significant shoulder movements. No bathing for neck 7 to 10 days until the removal of the peggy. Only sponge bath recommended. Will also send a prescription for Keflex 500 mg twice daily for a total of 10 days for antibiotic prophylaxis. Patient recommended to follow-up with me in the clinic in 7-10 days for staple removal. Anesthesia IV sedation Pathology / specimen Other Pathology comment: None Estimated Blood Loss 10 Condition Stable Disposition floor Surgeon Rodney Nam MD Surgical Staff Operation Date: 12/02/24 12:00 <No data on this case meets the specified criteria>
[2024-12-02] MEDS: ATORVASTATIN CALCIUM 10 MG TABLET PO (20:23)
[2024-12-02 21:47] LABS: Albumin, Serum 4.8 gm/dL (3.5-5.0); Anion Gap 12 (7-16); BUN/Creatinine Ratio 16 Ratio (12-20); Blood Urea Nitrogen 24 mg/dL (9-23); Calcium 10.2 mg/dL (8.3-10.6); Calcium (Corrected) 10.2 mg/dL (8.5-10.1); Carbon Dioxide 19.6 mMol/L (20.0-31.0); Chloride 101 mMol/L (98-107); Creatinine (Component) 1.5 mg/dL (0.6-1.3); Estimated Creatinine Clearance 64.4 mL/min (>60); Glucose 135 mg/dL (74-106); Osmolality,Calculated 272 (275-295); Phosphorous 3.5 mg/dL (2.4-5.1); Potassium 4.8 mMol/L (3.4-5.1); Sodium 133 mMol/L (136-145); eGFR 54 See Note
[2024-12-03] VITALS (16 sets, daily range): BP systolic 111–171; BP diastolic 56–81; PULSE 60–93; RESP 14–99; TEMP 37–37.8; O2SAT 93–100; BMI 30.1
--- NOTE | 2024-12-03 06:00 | EKG_ITS ---
[facility] Test Date: 2024-12-03 Pat Name: MERVAT KAPOOR Department: Room: 52A Gender: Male [employer]: JOYCE : 1970 Requested By: Uday Orozco Order Number: [id number] Reading MD: Uday Orozco Measurements Intervals Jenera Rate: 75 P: 46 SC: 167 QRS: -52 QRSD: 193 T: 80 QT: 437 QTc: 489 Interpretive Statements ELECTRONIC VENTRICULAR PACEMAKER ABNORMAL RHYTHM ECG Compared to ECG 12/01/2024 12:10:53 Idioventricular rhythm no longer present /store/S0/[id number].pdf
[2024-12-03 06:04] LABS: Alanine Aminotransferase 28 U/L (10-49); Albumin, Serum 4.5 gm/dL (3.5-5.0); Albumin/Globulin Ratio 2.0 (1.2-2.2); Alkaline Phosphatase 82 U/L (46-116); Anion Gap 11 (7-16); Aspartate Amino Transferase 11 U/L (0-34); BUN/Creatinine Ratio 16 Ratio (12-20); Bilirubin,Total 0.9 mg/dL (0.3-1.2); Blood Urea Nitrogen 21 mg/dL (9-23); Calcium 10.1 mg/dL (8.3-10.6); Calcium (Corrected) 10.1 mg/dL (8.5-10.1); Carbon Dioxide 20.9 mMol/L (20.0-31.0); Chloride 104 mMol/L (98-107); Creatinine (Component) 1.3 mg/dL (0.6-1.3); Estimated Creatinine Clearance 74.3 mL/min (>60); Globulin 2.2 gm/dL (2.3-3.5); Glucose 147 mg/dL (74-106); Magnesium 2.3 mg/dL (1.6-2.6); Osmolality,Calculated 277 (275-295); Phosphorous 3.9 mg/dL (2.4-5.1); Potassium 4.7 mMol/L (3.4-5.1); Sodium 136 mMol/L (136-145); Total Protein 6.7 gm/dL (5.7-8.2); eGFR > 60 See Note
[2024-12-03 06:35] LABS: Basophils # (Auto) 0.1 Thou/mm3 (0.0-0.2); Basophils % (Auto) 1 % (0-2.5); Eosinophils # (Auto) 0.1 Thou/mm3 (0.0-0.5); Eosinophils % (Auto) 1 % (0-10); Hematocrit 33.1 % (41.0-53.0); Hemoglobin 10.8 g/dL (13.5-16.0); Immature Granulocytes Auto 0.06 Thou/mm3 (0.00-0.00); Lymphocytes # (Auto) 0.6 Thou/mm3 (1.0-4.8); Lymphocytes % (Auto) 5 % (10-50); Mean Corpuscular HGB Conc 32.6 g/dl (31.0-37.0); Mean Corpuscular Hemoglobin 30.4 pg (25.0-35.0); Mean Corpuscular Volume 93 fL (80-100); Monocytes # (Auto) 0.9 Thou/mm3 (0.0-0.8); Monocytes % (Auto) 7 % (0-12); Neutrophils # (Auto) 10.4 Thou/mm3 (1.8-7.7); Neutrophils % (Auto) 86 % (37-80); Nucleated Red Blood Cell # 0.00 Thou/mm3 (0.00-0.00); Nucleated Red Blood Cell % 0 /100 WBC (0); Platelet Count 240 Thou/mm3 (140-440); RDW Standard Deviation 47.3 fL (35.1-43.9); Red Blood Count 3.55 Miln/mm3 (4.50-5.90); White Blood Count 12.1 Thou/mm3 (3.8-10.6)
[2024-12-03] MEDS: TAMSULOSIN HCL 0.4 MG CAPSULE PO (08:42)
[2024-12-03] MEDS: PANTOPRAZOLE 40 MG TABLET PO (08:43)
--- NOTE | 2024-12-03 13:29 | PD.RESPRO ---
Documentation for date of: 12/03/24 Subjective Subjective Interval history: The patient is s/p Pacemaker placement, EKG today showed Paced rythm at 75 bpm, the patient to be discharged on Keflex for a total duration of 10 days, continue home blood pressure medications including amlodipine 10 mg daily and lisinopril 20 mg daily. Patient recommended to not to lift any weights with his left hand and avoid significant shoulder movements. No bathing for neck 7 to 10 days until the removal of the peggy. Only sponge bath recommended. Recommend Keflex 500 mg twice daily for a total of 10 days for antibiotic prophylaxis. Patient recommended to follow-up with me in the clinic in 7-10 days for staple removal. Exam Vital Signs Temp Pulse Resp BP Pulse Ox O2 Del Method O2 Flow Rate 98.6 F 68 17 142/62 H 98 Room Air 2 12/03/24 11:10 12/03/24 11:10 12/03/24 11:10 12/03/24 11:10 12/03/24 11:10 12/02/24 18:00 12/02/24 14:45 Narrative Exam General: AOx3, cooperative Skin: Intact, no cyanosis , trace pedal edema noted. Noted multiple keloids on the anterior chest. Surgical dressing overlying pacemaker is clean and dry. HEENT: Atraumatic/normocephalic, [place], neck supple Heart: RRR, S1 and S2 without clicks or murmurs Lungs: Clear on auscultation bilaterally, no difficulty breathing Abdomen: Soft, nontender. Bowel sounds present . Vascular: Peripheral pulses palpable Neuro: No focal neurological deficits noted. Objective Labs 12/03/24 04:20 12/03/24 04:20 Labs: Laboratory Results - last 24 hr 12/02/24 12/02/24 12/02/24 05:33 14:20 17:55 WBC RBC Hgb Hct MCV MCH MCHC RDW Std Deviation Plt Count Neut % (Auto) Lymph % (Auto) Hickman % (Auto) Eos % (Auto) Baso % (Auto) Neut # (Auto) Lymph # (Auto) Hickman # (Auto) Eos # (Auto) Baso # (Auto) Immature Gran # (Auto) Absolute Nucleated RBC Immature Gran % Nucleated RBC % Sodium 128 L Potassium 5.2 H Chloride 99 Carbon Dioxide 20.0 Anion Gap 9 BUN 33 H Creatinine 1.8 H Estim Creat Clear Calc 53.7 L eGFR 44 L BUN/Creatinine Ratio 18 Glucose 176 H Calculated Osmolality 268 L Calcium 9.8 Corrected Calcium 9.8 Phosphorus 3.9 Magnesium Total Bilirubin AST ALT Alkaline Phosphatase Total Protein Albumin 4.5 Globulin Albumin/Globulin Ratio Vitamin B12 810 Ur Random Sodium 33.4 Ur Random Potassium < 10 L Ur Random Chloride 32.1 L 12/02/24 12/03/24 20:25 04:20 WBC 12.1 H RBC 3.55 L Hgb 10.8 L Hct 33.1 L MCV 93 MCH 30.4 MCHC 32.6 RDW Std Deviation 47.3 H Plt Count 240 Neut % (Auto) 86 H Lymph % (Auto) 5 L Hickman % (Auto) 7 Eos % (Auto) 1 Baso % (Auto) 1 Neut # (Auto) 10.4 H Lymph # (Auto) 0.6 L Hickman # (Auto) 0.9 H Eos # (Auto) 0.1 Baso # (Auto) 0.1 Immature Gran # (Auto) 0.06 H Absolute Nucleated RBC 0.00 Immature Gran % 1 H Nucleated RBC % 0 Sodium 133 L 136 Potassium 4.8 4.7 Chloride 101 104 Carbon Dioxide 19.6 L 20.9 Anion Gap 12 11 BUN 24 H 21 Creatinine 1.5 H 1.3 Estim Creat Clear Calc 64.4 74.3 eGFR 54 L > 60 BUN/Creatinine Ratio 16 16 Glucose 135 H 147 H Calculated Osmolality 272 L 277 Calcium 10.2 10.1 Corrected Calcium 10.2 H 10.1 Phosphorus 3.5 3.9 Magnesium 2.3 Total Bilirubin 0.9 AST 11 ALT 28 Alkaline Phosphatase 82 Total Protein 6.7 Albumin 4.8 4.5 Globulin 2.2 L Albumin/Globulin Ratio 2.0 Vitamin B12 Ur Random Sodium Ur Random Potassium Ur Random Chloride Quality Measures Quality Measures none Assessment & Plan Assessment Current Active Medications: Generic Name Dose Route Start Last Admin Trade Name Freq PRN Reason Stop Dose Admin Acetaminophen 650 mg 12/01/24 15:52 Acetaminophen 325 Mg Tablet PO 12/31/24 15:51 Q4HR PRN PAIN SCALE 1-3 (mild Acetaminophen 650 mg 12/01/24 15:52 Acetaminophen Supp 650 Mg Supp MD 12/31/24 15:51 Q4HR PRN PAIN SCALE 1-3 (mild Atropine Sulfate 1 mg 12/01/24 17:24 Atropine Sulf Inj 0.1 Mg/Ml Syr 10 Ml IV PRN PRN symptomatic bradycardia Dextrose 25 ml 12/01/24 18:07 Dextrose 50%-Water Inj 50 Ml Syringe IV 12/31/24 18:06 Q15MIN PRN BG 50-70 responsive npo pt Dextrose 50 ml 12/01/24 18:07 Dextrose 50%-Water Inj 50 Ml Syringe IV 12/31/24 18:06 Q15MIN PRN BG <50 OR BG <70 & pt unresponsive Glucagon 1 mg 12/01/24 18:07 Glucagon Inj 1 Mg Vial IM Q15MIN PRN BG <70, and no IV access Heparin Sodium (Porcine) 5,000 unit 12/01/24 22:00 12/01/24 21:51 Heparin Sod Inj 5000 Unit/Ml Vial SC 12/15/24 21:59 5,000 unit Q8HR LINDA Administration Ondansetron HCl 4 mg 12/02/24 03:24 12/02/24 03:36 Ondansetron Inj 2 Mg/Ml Inj 2 Ml IVP 01/01/25 03:23 4 mg Q6HR PRN Administration NAUSEA OR VOMITING Protocol Pantoprazole Sodium 40 mg 12/02/24 09:00 12/02/24 08:20 Pantoprazole Inj 40 Mg Vial IVP 01/01/25 08:59 40 mg QDAY LINDA Administration Tamsulosin HCl 0.4 mg 12/01/24 18:15 12/02/24 08:21 Tamsulosin Hcl 0.4 Mg Capsule PO 12/31/24 18:14 0.4 mg DAILY LINDA Administration Plan The patient is a 54-year-old male with a prior history of hypertension, hyperlipidemia, gout, diabetes mellitus type 2, history of BPH, history of inguinal hernia, 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 Patient denied dizziness or syncopal episodes, but did endorse feeling of generalized weakness when he tries to stand and walk. The patient reported that he thinks he got food poisoning for the past 2 weeks, reported abdominal pain and diarrhea for the past couple of weeks. Denied nausea or vomiting. Of note, the patient also reported that he saw a banquet captain 4 years ago for cardiac clearance prior to his surgery for inguinal hernia and left testicular tumor, at that time he had a stress test and was told everything was normal. Problems: 1. Bradycardia, third-degree AV block s/p Dual chamber pacemaker 2. Acute kidney injury - resolved 3. Hyponatremia 4. Mild Pleural effusion 5. History of hypertension 6. History of diabetes mellitus 7. History of left testicular tumor s/p radical orchidectomy 8. History of anemia Noted third-degree AV block on EKG, with ventricular escape rhythm of 30 to 35 bpm. patient is asymptomatic at the moment, did complain generalized weakness but patient reports having the symptoms for the past couple of weeks since onset of diarrhea. Endorsed presyncopal symptoms over last few weeks, Currently denies syncope or dizziness, vitals stable. Was given 1 L IV fluid bolus, 1 mg IV atropine and pacer pads were placed. At the time of evaluation patient continues to deny any symptoms of chest pain or pressure, or dizziness. Heart rate 32/min blood pressure systolic in the 140s. Recommend to give IV fluids for KELLY, recommend to keep pacing pads on at all times, keep atropine at bedside, if patient develops symptomatic bradycardia, ordered stat echocardiogram. Echocardiogram yesterday showed LV function hyperkinetic with an EF of 65 to 70%, normal LV size and wall thickness, mild MR and TR, moderate aortic valve sclerosis without stenosis. Elevated LVOT velocities likely secondary to hyperkinetic contraction of LV in the setting of severe bradycardia. Hypoosmolar hyponatremia likely secondary to hypovolemia, in the setting of diarrhea and prerenal KELLY. Acute kidney injury likely prerenal in the setting of diarrhea, CT did show mild free fluid in abdomen and mild right pleural effusion but patient does not seem to be clinically in decompensated heart failure, received IV fluid bolus in ED, will discontinue IV fluids as patient has pleural effusion and mild ascites. CT abdomen pelvis also reported mild right pleural effusion and mild free fluid in abdomen, slight lipase elevation, no clinical concern of pancreatitis at this point, will defer to primary team. Pleural effusion and mild ascites possibly due to decreased cardiac output in the setting of bradycardia. Did notice hypertension patient's blood pressure 173 systolic, would recommend holding off on blood pressure medications as patient is high risk for developing cardiogenic shock, if blood pressure continues to be elevated can consider hydralazine as needed. ? s/p Pacemaker placement, EKG today showed Paced rythm at 75 bpm, the patient to be discharged on Keflex for a total duration of 10 days, continue home blood pressure medications including amlodipine 10 mg daily and lisinopril 20 mg daily. - the patient can be discharged from cardiology stand point , recommend to follow up with outpatient cardiology Dr Nam in one week for staple removal. - Recommend taking Keflex 500 mg twice daily for 10 days - Recommend left arm sling for 7 days - Recommend no bathing for the next 7 days and only sponge bath and keep the pacemaker site clean. - Recommend to not give any aspirin or heparin subcu tomorrow morning. Rest of the management deferred to primary team. Thank you for cardiology consultation. We appreciate the opportunity to participate in this patient's care. Will continue to follow-up on this patient This case was discussed with banquet captain, Dr. Nam. Uday Orozco MD PG3 Attending Provider Attestation/Addendum I have personally seen and examined the patient separately on the above date of service and discussed the plan of care with the resident. I reviewed the resident Dr. clemente consultation progress note and agree with the resident findings and plan in the note above and have also edited the documentation to reflect my findings and plan. Rodney Nam M.D. Interventional Cardiology
--- NOTE | 2024-12-03 14:06 | ESDS_ITS ---
<Statement entered by Latia Ren MD - 12/18/24 15:04> I reviewed above note and agree with findings and plans. I have also personally examined the patient with medicine team and went over assessment and plan with medical team including internal sales and resident physician. <Statement entered by Amy Boo MD - 12/04/24 05:41> Patient was seen and examined by me personally. I have reviewed the below documentation by the team resident and agree with its findings. Discharge plan was discussed with the attending, Dr. Ren 54-year-old male with past medical history as below, admitted for symptomatic bradycardia, patient in emergency department noted to have heart rate in high 20s, was admitted to intensive care unit for close observation did not require temporary pacing. Patient was evaluated by cardiology was taken to cardiac [facility] on 12/02 had permanent pacemaker placed secondary to complete heart block which is a class I indication, patient stable post pacemaker placement was noted to have KELLY which is resolving. Patient this morning endorsed that he is mobilizing well has no current complaints was evaluated by physical therapy, per PT no additional physical therapy needed. Patient is stable for discharge responded well to hospital treatment to continue Keflex for prophylaxis as prescribed by cardiology, follow-up with national sales representative office office in 1 week for staple removal. Patient is stable for discharge Amy Boo MD Internal Medicine, PGY-2 Planned Discharge Date 12/03/24 DS: Providers Provider Date of admission: 12/01/24 15:52 Primary care physician: Sherry Parra MD Admitting Provider: Janeth Al MD Attending Provider on Admission: Janeth Al MD Consults: 12/01/24 14:19 Consult to Cardiology Stat Comment: Consulting Provider: Rodney Nam 12/03/24 09:09 Referral Physical Therapy Stat Comment: Physician Instructions: Attending Provider on DC: Latia Ren MD Discharging Provider: Latia Ren MD DS: Diagnosis Problem List Completed Was Problem List Reviewed/Reconciled?: Yes Hospital Course Hospital Course Hospital course: Summary: Jorge Luis Blair is a 54M with a pmhx significant for HTN, HLD, gout, NIDDM2, BPH, inguinal hernia repair, and a left radical orchidectomy went to PCP for diarrhea x1 week but sent to [facility] on 12/01 for symptomatic bradycardia. On admission patient's heart rate in the 30s EKG showing third-degree heart block. Patient was upgraded to ICU for close telemetry monitoring. Cardiology was consulted and patient received pacemaker implantation on 12/02. Patient was monitored overnight post surgery and remained stable. Patient's course complicated by KELLY with hyponatremia and hyperkalemia, which all resolved by discharge. On discharge patient is hemodynamically stable, vitals and labs reviewed, events patient is feeling ready to go home. Imaging: Echo showed hyperkinetic LV function with EF 65-70%, diastolic function cannot be graded because of arrhythmia with complete heart block, mild MR and TR, aortic valve not well-visualized and cannot comment on tricuspid versus bicuspid, moderate aortic valve sclerosis without stenosis. CXR shows mild vascular congestion. CTAP shows mild right pleural fluid, mild fluid subscapular to liver, and free mild free fluid in the abdomen Discharge Recommendations: - Please take all medications as prescribed - Stop hydrochlorothiazide, due to episodes of hyponatremia in the past - Per cardiology continue antibiotic Keflex 500 mg twice a day for 9 more days - Per cardiology continue home blood pressure medication including amlodipine 10 mg daily lisinopril 20 mg daily -Per cardiology recommend to not lift any weights with your left hand with significant shoulder movements, no bathing echo for 7 to 10 days with removal of peggy - Please follow-up with national sales representative within 7 to 10 days for staple removal - Please continue all other medication except for as listed above. - Please follow up with your PCP within one week of discharge regarding Cocci IgG and as a follow up - If your symptoms worsen, please seek immediate medical attention and return to your nearest emergency room. - If you do not have a PCP, you may follow up at the [facility] at [address] [place] [address] [address] [id number], Hospital Diagnoses: #Symptomatic bradycardia, third degree heart block s/p pacemaker 12/02 #KELLY #Hyponatremia, resolved #Hyperkalemia, resolved #Suspicion of new CHF #Leukocytosis #HTN #NIDDM2 #HLD #BPH #Gout #Normocytic Anemia #Hx of L testicular mass #Caseating granulomatous epididymitis s/p radical orchiectomy Shanell Gould, Internal Medicine, PGY-1 Status at Discharge Cognitive/behavioral status at discharge: Stable Functional status at discharge: independent ambulation Overall status at discharge: patient is back to baseline Time Spent with Patient Time attestation: Total time spent providing and/or coordinating discharge services: Time spent: Greater than 30 minutes Exam Vital Signs Temp Pulse Resp BP Pulse Ox O2 Del Method O2 Flow Rate 98.6 F 68 17 142/62 H 98 Room Air 2 12/03/24 11:10 12/03/24 11:10 12/03/24 11:10 12/03/24 11:10 12/03/24 11:10 12/02/24 18:00 12/02/24 14:45 Narrative Exam GENERAL: AOx3, no acute distress, obese HEENT: NC/AT, mucous membranes moist, bilateral sclera anicteric CARDIOVASCULAR: regular rate and rhythm, S1/S2 present, no murmurs appreciated +pacemaker insertion site upper left pectoral dressed with slight blood PULMONARY: clear to auscultation bilaterally, no rales/rhonchi/wheezes ABDOMINAL: soft, non-tender, non-distended, no rebound/guarding, bowel sounds present EXTREMITIES: BLE trace edema SKIN: warm and dry, intact, no rashes +multiple keloids on chest +facial rash NEURO: CN II-XII grossly intact, no focal deficits, alert, following commands Discharge Plan Plan Patient Disposition: HOME (Self Care) Patient condition on transfer: Stable Care Plan Goals: -Continue Keflex for 9 more days, antibiotic prophylaxis -Stop hydrochlorothiazide, you had episodes of hyponatremia in the past, Stop Metoprolol. -Continue all other medications as prescribed. -FOLLOW UP WITH [facility] CUTTER OUTPATIENT IN 1 WEEK -Follow up with PCP outpatient in 1 week -Return to ED if symptoms worsen. Prescriptions/Referrals Prescriptions/Med Rec: New cephalexin 500 mg capsule 500 mg PO BID 9 Days Qty: 18 0RF Continued lisinopril 20 mg tablet 20 mg PO QDAY omeprazole 20 mg capsule,delayed release(DR/EC) 20 mg PO QDAY metformin 500 mg tablet 500 mg PO QDAY Patient Comments: TAKES ONLY WHEN CANNOIT DECREASE BLOOD SUGAR 500MG EXTENDED RELEASE allopurinol 100 mg tablet 100 mg PO QDAY tamsulosin 0.4 mg Capsule 0.4 mg PO QDAY Qty: 30 0RF docusate sodium [Colace] 100 mg capsule 100 mg PO BID Qty: 40 0RF atorvastatin 10 mg Tablet 10 mg PO QPM amlodipine 10 mg Tablet 10 mg PO QDAY Discontinued hydrochlorothiazide 12.5 mg tablet 12.5 mg PO QAM garlic 5,000 mcg tablet 5 mg PO QDAY Cod Liver Oil plus Immanuel and D3 1,250 unit-130 unit-530 mg capsule 1 cap PO QDAY Referrals: Rodney Nam MD [Physician] - Sherry Parra MD [Primary Care Provider] - Patient/Caregiver Discharge Instructions Discharge Activity: activity as tolerated Education Materials: Pacemakers, Living with a Pacemaker, Understanding Bradycardia Print Language: B[place]udian Stand Alone Forms: [employer] Award Info., Patient Portal Info Letter Discharge Order Discharge Orders: Discharge (Routine); Ordered 12/03/24 Ordered By: Octavio Benavidez Quality Discharge Quality Measures VTE prophylaxis
[2024-12-03 14:12] LABS: Iron 20 mcg/dL (65-175)
[2024-12-03 16:21] LABS: Ferritin 92 ng/mL (10.5-307.3); Percent Iron Saturation 7 % (20-55); Total Iron Binding Capacity 279 mcg/dL (250-425); Unsaturated Iron Binding 259 (225-295)
[2024-12-04 15:11] LABS: Cocci Serology, IgG Negative (Negative)
== END 2024-12-03 11:31 | disposition home or self-care (01) | DRG 309 ==
LOC: SERX 14:43 → SERHOLD 16:03 → S2SX 18:33
PROVIDERS: Internal Medicine Cardiovascular Disease; Nurse Practitioner Family; Student in an Organized Health Care Education/Training Program; Admitting Provider Internal Medicine; Emergency Provider Family Medicine; PCP Family Medicine; Visit Provider Internal Medicine
DX: I44.2 Atrioventricular block, complete (principal); E87.1 Hypo-osmolality and hyponatremia; N17.9 Acute kidney failure, unspecified; R18.8 Other ascites; J90 Pleural effusion, not elsewhere classified; J98.11 Atelectasis; R00.1 Bradycardia, unspecified; I10 Essential (primary) hypertension; E87.5 Hyperkalemia; E78.5 Hyperlipidemia, unspecified; M10.9 Gout, unspecified; R63.1 Polydipsia; N40.0 Benign prostatic hyperplasia without lower urinary tract symptoms; Z79.84 Long term (current) use of oral hypoglycemic drugs; E11.9 Type 2 diabetes mellitus without complications; I49.3 Ventricular premature depolarization; N45.1 Epididymitis; T50.2X5A Adverse effect of carbonic-anhydrase inhibitors, benzothiadiazides and other diuretics, initial encounter; Z95.0 Presence of cardiac pacemaker
CPT/HCPCS: 36415; 71045; 74176; 76770; 80053; 80061; 80069; 81001; 82436; 82607; 82728; 83036; 83540; 83550; 83690; 83735; 83880; 84100; 84133; 84300; 84439; 84443; 84484; 85025; 85610; 85730; 86331; 86635; 86850; 86900; 86901; 87081; 87086; 87811; 93005; 93306; 96361; 96374; 99152; 99153; 99284; A4565; A4649; C1785; C1894; C1898; J0153; J0168; J0282; J0461; J0689; J1644; J2250; J2312; J2371; J2405; J2470; J3010; J3373; J3475; J3490; J7030; J7999; A9270